=== PATIENT | male | born 1955 | race Caucasian/White ===

== ENCOUNTER 2016-12-14 08:25 | Emergency (ER) | payer SELFPAY ==
[~2016-12-14] VITALS: Ht 177.8 cm; Wt 60.0 kg
[~2016-12-14 08:25] MED LIST: ASPI81; MVI; PRIL20TA2; [UNRECOGNIZED DRUG - OTHER]
[2016-12-14 08:27] VITALS: BP 119/60; PULSE 118; RESP 20; TEMP 98.2; O2SAT 95
[2016-12-14 08:46] VITALS: BP 141/72; PULSE 104; O2SAT 100
[2016-12-14 09:00] VITALS: BP 129/70; PULSE 98; RESP 18; O2SAT 99
[2016-12-14] MEDS ORDERED: LISI-519 PO (09:27)
[2016-12-14] MEDS ORDERED: TAMS5CAP PO (09:27)
[2016-12-14] MEDS ORDERED: METO25TA3 PO (09:27)
--- NOTE | 2016-12-14 09:54 | PD ---
HPI . Urinary retention Chief Complaint: Complaint Time Seen by Provider: 09:34 Travel History International Travel<30 days: No Contact w/Intl Traveler<30days: No Traveled to known affect area: No History of Present Illness HPI This patient presents with urinary retention which started at 10:30 last night. He states that the symptoms are now severe. He states that he has been on Flomax for 4 days but that his symptoms are worse rather than better. He denies any associated nausea, vomiting or fever. PFSH Past Medical History Heart Rhythm Problems: Yes Diminished Hearing: No GERD: Yes Hypertension: Yes Past Surgical History Abdominal Surgery: Yes (RT HERNIA REPAIR X 1 AND LT HERNIA REPAIR X 3) Social History Alcohol Use: Yes (couple daily) Tobacco Use: Yes Substance Use: No Allergies-Medications (Allergen,Severity, Reaction): Coded Allergies: acetaminophen (Verified Allergy, Severe, Hallucinations, 12/14/16) oxycodone (Verified Allergy, Severe, Hallucinations, 12/14/16) Reported Meds & Prescriptions Reported Meds & Active Scripts Active Reported Metoprolol Tartrate 25 Mg Tab 25 Mg PO DAILY Lisinopril 5 Mg Tab 5 Mg PO DAILY Flomax (Tamsulosin HCl) 0.4 Mg Cap 0.4 Mg PO HS Review of Systems Except as stated in HPI: all other systems reviewed are Neg General / Constitutional: No: Fever, Chills Gastrointestinal: No: Nausea, Vomiting Genitourinary: Positive: Decreased Urinary Output, Hesitancy, Dribbling, Pelvic Pain Physical Exam Narrative GENERAL: Patient is lying on the stretcher in mild distress. SKIN: warm/dry. No rashes. HEAD: Normocephalic. Atraumatic. EYES: Pupils equal and round. No scleral icterus. No injection or drainage. ENT: No nasal bleeding or discharge. Mucous membranes pink and moist. NECK: Trachea midline. Full range of motion without pain.. CARDIOVASCULAR: Regular rate and rhythm. RESPIRATORY: No accessory muscle use. Clear to auscultation. Breath sounds equal bilaterally. GASTROINTESTINAL: Abdomen soft. Nontender. Bowel sounds present. Suprapubic distention to approximately 2 cm below the umbilicus. MUSCULOSKELETAL: No obvious deformities. NEUROLOGICAL: Awake and alert. No obvious cranial nerve deficits. Motor grossly within normal limits. Normal speech. PSYCHIATRIC: Appropriate mood and affect; insight and judgment normal. Data Data Last Documented VS Vital Signs Date Time Temp Pulse Resp B/P (MAP) Pulse Ox O2 Delivery O2 Flow Rate FiO2 12/14/16 08:46 104 141/72 (95) 100 Room Air 12/14/16 08:27 98.2 20 Orders Orders Urinary Catheter Insert/Apply (12/14/16 09:34) Urinalysis - C+S If Indicated (12/14/16 09:34) Urine Culture (12/14/16 09:54) Labs Laboratory Tests Test 12/14/16 09:54 Urine Color YELLOW Urine Turbidity CLEAR Urine pH 6.0 Urine Specific [place] 1.014 Urine Protein TRACE mg/dL Urine Glucose (UA) NEG mg/dL Urine Ketones TRACE mg/dL Urine Occult Blood SMALL Urine Nitrite NEG Urine Bilirubin NEG Urine Urobilinogen LESS THAN 2.0 MG/DL Urine Leukocyte Esterase NEG Urine RBC 4 /hpf Urine WBC 2 /hpf Urine Squamous Epithelial Cells <1 /hpf Urine Bacteria OCC /hpf Urine Hyaline Casts 29 /lpf Urine Mucus MANY /lpf Microscopic Urinalysis Comment CATH-CULTURE IND MDM Medical Decision Making Medical Screen Exam Complete: Yes Emergency Medical Condition: Yes Medical Record Reviewed: Yes (this patient states that he's been seen here in the recent past for same. His last visit in the computer is in 2006.) Differential Diagnosis Differential diagnosis of urinary retention includes but is not limited to prostatitis, BPH, prostate cancer, bladder outlet obstruction due to blood clot , acute UTI, neurogenic bladder Narrative Course This patient presents with acute urinary retention. A Granado will be placed and left. UA has been sent. He reports that he already has a referral to a urologist. He has not yet seen a urologist. He is already on Flomax. UA>>neg nitrite, neg LE, 2 WBC, occ bact. Doesn't really look infected. Will DC with a leg bag and follow-up with urology. Diagnosis Primary Impression: Acute urinary retention Patient Instructions: General Instructions, Urinary Retention in Men (DC) Additional Instructions: Follow-up with urology as planned Disposition: 01 DISCHARGE HOME Condition: Stable Kathy Mo MD Dec 14, 2016 09:54
[2016-12-14 10:00] VITALS: BP 138/77; PULSE 110; RESP 18; O2SAT 99
[2016-12-14 10:34] LABS: BACTERIA, URINE OCC /hpf; BLOOD, URINE SMALL (NEG); COMMENT (UR) CATH-CULTURE IND; CULTURE IF INDICATED CATH CULTURE IND; GLUCOSE,URINE NEG (NEG); HYALINE CAST, URINE 29 /lpf (RARE); KETONE, URINE TRACE mg/dL (NEG); MUCUS URINE MANY /lpf (OCC); NITRITE,URINE NEG (NEG); SQUAMOUS EPITHELIAL CELL URINE <1 /hpf (0-5); URINE COLOR YELLOW (YELLW/STRAW)
[2016-12-14 11:00] VITALS: BP 137/76
[2016-12-14] MEDS ORDERED: MACR100C2 PO (16:16)
== END 2016-12-14 12:20 | disposition left against medical advice (07) ==
LOC: NEPC 08:25
DX: R33.9 Retention of urine, unspecified (principal); I10 Essential (primary) hypertension; Z72.0 Tobacco use; Z86.79 Personal history of other diseases of the circulatory system; Z87.19 Personal history of other diseases of the digestive system; Z53.29 Procedure and treatment not carried out because of patient's decision for other reasons
CPT/HCPCS: 51702; 81001; 87086

== ENCOUNTER 2016-12-14 15:08 | Emergency (ER) | payer SELFPAY ==
[~2016-12-14] VITALS: Ht 177.8 cm; Wt 70.0 kg
[~2016-12-14 15:08] MED LIST changes: +LISI-519 PO; +METO25TA3 PO; +TAMS5CAP PO
[2016-12-14 15:09] VITALS: BP 130/71; PULSE 106; RESP 13; TEMP 98.7; O2SAT 100
--- NOTE | 2016-12-14 16:15 | PD ---
HPI Chief Complaint: Complaint Time Seen by Provider: 15:51 Travel History International Travel<30 days: No Contact w/Intl Traveler<30days: No Traveled to known affect area: No History of Present Illness HPI 61-year-old male came to the emergency room with history of urinary retention. She was in the emergency room earlier this morning for the same complain and had a Granado placed. His bladder was emptied and the plan was to send him home on Granado catheter and leg bag but patient demanded the Granado to be taken out since it was hurting him. Eventually he left AMA. He is back because he is in retention again. He supposed to see a urologist tomorrow but he cannot wait till tomorrow because of the pain from the retention. He says he will take the Granado and go home with the Granado this time. [facility] Past Medical History Narrative Medical List of his past medical, surgical, social and family history is reviewed from the nursing note. Heart Rhythm Problems: Yes Diminished Hearing: No GERD: Yes Hypertension: Yes Past Surgical History Abdominal Surgery: Yes (RT HERNIA REPAIR X 1 AND LT HERNIA REPAIR X 3) Social History Alcohol Use: Yes (couple daily) Tobacco Use: Yes Substance Use: No Allergies-Medications (Allergen,Severity, Reaction): Coded Allergies: acetaminophen (Verified Allergy, Severe, Hallucinations, 12/16/16) DENIES ANY ALLERGY oxycodone (Verified Allergy, Severe, Hallucinations, 12/16/16) DENIES ANY ALLERGY Comments List of his allergies reviewed from the nursing note. Reported Meds & Prescriptions Reported Meds & Active Scripts Active Macrobid (Nitrofurantoin Monoh/Nitrofur Macro) 100 Mg Cap 100 Mg PO BID 10 Days Reported Metoprolol Tartrate 25 Mg Tab 25 Mg PO DAILY Lisinopril 5 Mg Tab 5 Mg PO DAILY Flomax (Tamsulosin HCl) 0.4 Mg Cap 0.4 Mg PO HS Narrative Medication List of his home medications reviewed from the nursing note. Review of Systems Except as stated in HPI: all other systems reviewed are Neg Physical Exam Narrative GENERAL: Awake, alert, anxious, moderate distress SKIN: Focused skin assessment warm/dry. HEAD: Atraumatic. Normocephalic. EYES: Pupils equal and round. No scleral icterus. No injection or drainage. ENT: No nasal bleeding or discharge. Mucous membranes pink and moist. NECK: Trachea midline. No JVD. CARDIOVASCULAR: Regular rate and rhythm. No murmur appreciated. RESPIRATORY: No accessory muscle use. Clear to auscultation. Breath sounds equal bilaterally. GASTROINTESTINAL: Abdomen soft, non-tender, nondistended. Hepatic and splenic margins not palpable. MUSCULOSKELETAL: No obvious deformities. No clubbing. No cyanosis. No edema. NEUROLOGICAL: Awake and alert. No obvious cranial nerve deficits. Motor grossly within normal limits. Normal speech. PSYCHIATRIC: Appropriate mood and affect; insight and judgment normal. Data Data Last Documented VS Vital Signs Date Time Temp Pulse Resp B/P (MAP) Pulse Ox O2 Delivery O2 Flow Rate FiO2 12/14/16 17:26 12/14/16 15:09 98.7 106 13 100 Orders Orders Urinary Catheter Insert/Apply (12/14/16 15:57) [facility] Medical Decision Making Medical Screen Exam Complete: Yes Emergency Medical Condition: Yes Medical Record Reviewed: Yes Differential Diagnosis Urinary outlet obstruction, urinary retention Narrative Course 4:14 PM patient will get a Granado catheter and be discharged home on a leg bag. Patient showed UTI when he was here earlier today. I'll send him home with a prescription for Macrobid as well. Procedures EKG Prior to Arrival: No Diagnosis Primary Impression: Bladder retention of urine Additional Impression: UTI (urinary tract infection) Qualified Codes: N39.0 - Urinary tract infection, site not specified Referrals: Primary Care Physician Additional Instructions: Continue with the Granado catheter and care as per the nurse's teaching. Follow- up with the urologist tomorrow as per the appointment. Med/Other Pt SpecificInfo: Prescription(s) given, No Change to Meds Scripts Nitrofurantoin Monohydrate Macrocrystals (Macrobid) 100 Mg Cap 100 MG PO BID for Infection for 10 Days, #20 CAP 0 Refills Prov: Latonia Kidd MD 12/14/16 Disposition: 01 DISCHARGE HOME Condition: Stable Latonia Kidd MD Dec 14, 2016 16:15
[2016-12-14] MEDS ORDERED: MACR100C2 PO (16:16)
== END 2016-12-14 17:28 | disposition home or self-care (01) ==
LOC: NEPD 15:08
DX: R33.9 Retention of urine, unspecified (principal); N39.0 Urinary tract infection, site not specified; I10 Essential (primary) hypertension; Z72.0 Tobacco use; Z86.79 Personal history of other diseases of the circulatory system; Z87.19 Personal history of other diseases of the digestive system
CPT/HCPCS: 51702

== ENCOUNTER 2016-12-15 15:14 | Emergency (ER) | payer SELFPAY ==
[~2016-12-15] VITALS: Ht 177.8 cm; Wt 60.0 kg
[~2016-12-15 15:14] MED LIST changes: +MACR100C2 PO
[2016-12-15 15:16] VITALS: BP 120/74; PULSE 118; RESP 12; TEMP 98.7; O2SAT 96
--- NOTE | 2016-12-15 15:48 | PD ---
HPI Chief Complaint: Loan Underwriter Problem Time Seen by Provider: 15:24 Travel History International Travel<30 days: No Contact w/Intl Traveler<30days: No Traveled to known affect area: No History of Present Illness HPI 61-year-old male with PMH of chronic EtOH use presents to the ED for evaluation of lower abdominal pain secondary to his urinary catheter not draining today. The patient had a urinary catheter inserted yesterday secondary to urinary retention. He states that the catheter was draining fine overnight but has not drained any urine today. He endorses mild lower abdominal pain. He denies fever, chills, nausea, vomiting, back pain or weakness of the extremities. He has not been able to obtain follow-up with the urologist yet. He has not been taking the Macrobid that was prescribed at his last visit. PFSH Past Medical History Heart Rhythm Problems: Yes Diminished Hearing: No GERD: Yes Hypertension: Yes Past Surgical History Abdominal Surgery: Yes (RT HERNIA REPAIR X 1 AND LT HERNIA REPAIR X 3) Social History Alcohol Use: Yes (couple daily) Tobacco Use: Yes Substance Use: No Allergies-Medications (Allergen,Severity, Reaction): Coded Allergies: acetaminophen (Verified Allergy, Severe, Hallucinations, 12/15/16) DENIES ANY ALLERGY oxycodone (Verified Allergy, Severe, Hallucinations, 12/15/16) DENIES ANY ALLERGY Reported Meds & Prescriptions Reported Meds & Active Scripts Active Macrobid (Nitrofurantoin Monoh/Nitrofur Macro) 100 Mg Cap 100 Mg PO BID 10 Days Reported Metoprolol Tartrate 25 Mg Tab 25 Mg PO DAILY Lisinopril 5 Mg Tab 5 Mg PO DAILY Flomax (Tamsulosin HCl) 0.4 Mg Cap 0.4 Mg PO HS Review of Systems Except as stated in HPI: all other systems reviewed are Neg Physical Exam Narrative GENERAL: Well-nourished, well-developed thin white male in no acute distress. SKIN: Focused skin assessment warm/dry. HEAD: Normocephalic. EYES: No scleral icterus. No injection or drainage. NECK: Supple, trachea midline. No JVD or lymphadenopathy. CARDIOVASCULAR: Regular rate and rhythm without murmurs, gallops, or rubs. RESPIRATORY: Breath sounds clear and equal bilaterally. No accessory muscle use. GASTROINTESTINAL: Abdomen soft, non-tender, nondistended. Active bowel sounds. GENITOURINARY: Circumcised. Testes descended bilaterally without evidence of rotation. No lesions or erythema. No urethral discharge. There is a Granado catheter in place. No urine is visible in the collection bag. MUSCULOSKELETAL: No cyanosis, or edema. Moves states showed a spontaneously. Walks with normal gait. BACK: Nontender without obvious deformity. No CVA tenderness. Data Data Last Documented VS Vital Signs Date Time Temp Pulse Resp B/P (MAP) Pulse Ox O2 Delivery O2 Flow Rate FiO2 12/15/16 15:16 98.7 118 12 120/74 (89) 96 Orders Orders Urinary Catheter Insert/Apply (12/15/16 15:23) Urinalysis - C+S If Indicated (12/15/16 15:46) Nitrofurantoin Monohyd Macrocr (Macrobid (12/15/16 16:30) Urine Culture (12/15/16 15:55) Labs Laboratory Tests Test 12/15/16 15:55 Urine Color YELLOW Urine Turbidity CLEAR Urine pH 6.5 Urine Specific [place] 1.004 Urine Protein NEG mg/dL Urine Glucose (UA) NEG mg/dL Urine Ketones NEG mg/dL Urine Occult Blood MOD Urine Nitrite NEG Urine Bilirubin NEG Urine Urobilinogen LESS THAN 2.0 MG/DL Urine Leukocyte Esterase LARGE Urine RBC 1 /hpf Urine WBC 10 /hpf Urine Bacteria RARE /hpf Microscopic Urinalysis Comment CATH-CULTURE IND MDM Medical Decision Making Medical Screen Exam Complete: Yes Emergency Medical Condition: Yes 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 Patient was seen in the ED yesterday where he had a catheter placed secondary to urinary retention. He states that the catheter drained well overnight but is not draining today. No other complaints on presentation. Vital signs reviewed. The patient is well-appearing on physical exam. The Granado catheter is connected to an extension tube and there is no urine in the collection bag. The extension tube was removed and the leg bag was connected directly to the catheter tip. This resulted in a urinary void of approximately 350-400mLs. The patient reported complete resolution of his pain. Review of the record reveals that the patient was seen twice yesterday, left AMA the first time. Granado catheter was placed and he was prescribed Macrobid on the second visit. He has been noncompliant with the antibiotics. He was given a first dose here in the ED, instructed to take the medication as prescribed, follow up with Dr. Bailye as previously discussed. The patient is very anxious to leave, does not want to await the results of the UA. He is stable and discharged home. 1631: UA reveals large leukocyte esterase, 10 WBCs, rare bacteria. Culture pending. Diagnosis Primary Impression: Urinary retention Additional Impressions: Granado catheter problem Qualified Codes: T83.9XXA - Unspecified complication of genitourinary prosthetic device, implant and graft, initial encounter Noncompliance Referrals: Andrei Bailey MD Patient Instructions: General Instructions, Urinary Retention in Men (ED) Additional Instructions: Rest, hydrate. Begin taking Macrobid this afternoon as previously prescribed. Take all antibiotics as prescribed. Follow-up with Dr. Bailey as discussed. Return to the ED for any urgent or emergent medical condition. Disposition: 01 DISCHARGE HOME Condition: Stable Dora Felder Dec 15, 2016 15:48
[2016-12-15 16:19] LABS: BACTERIA, URINE RARE /hpf; BLOOD, URINE MOD (NEG); GLUCOSE,URINE NEG (NEG); KETONE, URINE NEG (NEG); NITRITE,URINE NEG (NEG); PH, URINE 6.5 (5.0-8.5); URINE COLOR YELLOW (YELLW/STRAW)
[2016-12-15 16:21] LABS: COMMENT (UR) CATH-CULTURE IND; CULTURE IF INDICATED CATH CULTURE IND
[2016-12-15] MEDS ORDERED: NITROFURANTOIN MONOHYD MACROCR 100 MG CAP PO ONE (16:30)
== END 2016-12-15 16:40 | disposition home or self-care (01) ==
LOC: NEPC 15:14
DX: R33.9 Retention of urine, unspecified (principal); T83.9XXA Unspecified complication of genitourinary prosthetic device, implant and graft, initial encounter; F10.20 Alcohol dependence, uncomplicated; K21.9 Gastro-esophageal reflux disease without esophagitis; I10 Essential (primary) hypertension; Z72.0 Tobacco use; Z88.5 Allergy status to narcotic agent; Z88.6 Allergy status to analgesic agent; Z79.899 Other long term (current) drug therapy
CPT/HCPCS: 81001; 87086; 99283

== ENCOUNTER 2016-12-16 13:05 | Emergency (ER) | payer SELFPAY ==
[~2016-12-16] VITALS: Ht 177.8 cm; Wt 59.0 kg
[2016-12-16 13:09] VITALS: BP 110/70; PULSE 102; RESP 20; TEMP 98; O2SAT 98
--- NOTE | 2016-12-16 13:21 | PD ---
Physical Exam Date Seen by Provider: Dec 16, 2016 Time Seen by Provider: 13:20 Narrative This 61-year-old white male presents to emergency department with complaints of a Granado obstruction. He had his Granado placed 2 days ago. Patient denies any nausea vomiting. He denies any significant pain. He states that. Working sometimes last evening. Vital signs reviewed. Awaiting bed placement. Data Data Last Documented VS Vital Signs Date Time Temp Pulse Resp B/P (MAP) Pulse Ox O2 Delivery O2 Flow Rate FiO2 12/16/16 13:09 98.0 102 20 110/70 (83) 98 Room Air [facility] Medical Record Reviewed: No Supervised Visit with SUNITHA: No Condition: Stable Isidro Olivares Dec 16, 2016 13:21
--- NOTE | 2016-12-16 13:33 | PD ---
HPI Chief Complaint: Admitting Counselor Problem Time Seen by Provider: 13:24 Travel History International Travel<30 days: No Contact w/Intl Traveler<30days: No Traveled to known affect area: No History of Present Illness HPI This is a 61-year-old male who presents to the emergency department for the fourth time in several days in the setting of acute urinary retention. I've seen him before with the same problem. He currently has a Granado catheter and he reports that he keeps getting obstructed and he wasn't flowing overnight. Here in the emergency department he says he has a little bit a urine in his bag and he denies any abdominal pain currently. He is pretty poor historian and he has a history of chronic alcoholism. He says he's been calling Dr. Dougherty's office and they called him yesterday and told him they would call him back today for an appointment. PFSH Past Medical History Heart Rhythm Problems: Yes Diminished Hearing: No GERD: Yes Hypertension: Yes Past Surgical History Abdominal Surgery: Yes (RT HERNIA REPAIR X 1 AND LT HERNIA REPAIR X 3) Social History Alcohol Use: Yes (couple daily) Tobacco Use: Yes Substance Use: No Allergies-Medications (Allergen,Severity, Reaction): Coded Allergies: acetaminophen (Verified Allergy, Severe, Hallucinations, 12/16/16) DENIES ANY ALLERGY oxycodone (Verified Allergy, Severe, Hallucinations, 12/16/16) DENIES ANY ALLERGY Reported Meds & Prescriptions Reported Meds & Active Scripts Active Macrobid (Nitrofurantoin Monoh/Nitrofur Macro) 100 Mg Cap 100 Mg PO BID 10 Days Reported Metoprolol Tartrate 25 Mg Tab 25 Mg PO DAILY Lisinopril 5 Mg Tab 5 Mg PO DAILY Flomax (Tamsulosin HCl) 0.4 Mg Cap 0.4 Mg PO HS Review of Systems Except as stated in HPI: all other systems reviewed are Neg Physical Exam Narrative GENERAL:Well appearing, no acute distress SKIN: Focused skin assessment warm and dry. HEAD: Atraumatic. Normocephalic. EYES: Pupils equal and round. No injection or drainage. ENT: Moist mucous membranes NECK: Trachea midline. CARDIOVASCULAR: Regular rate and rhythm. No murmur appreciated. RESPIRATORY: Clear to auscultation. Breath sounds equal bilaterally. GASTROINTESTINAL: Abdomen soft, non-tender, nondistended. : Granado catheter in place with clear urine in the bag. MUSCULOSKELETAL: No obvious deformities. NEUROLOGICAL: Awake and alert. No obvious cranial nerve deficits. Moving all extremities. PSYCHIATRIC: Appropriate mood and affect; insight and judgment normal. Data Data Last Documented VS Vital Signs Date Time Temp Pulse Resp B/P (MAP) Pulse Ox O2 Delivery O2 Flow Rate FiO2 12/16/16 13:09 98.0 102 20 110/70 (83) 98 Room Air MDM Medical Decision Making Medical Screen Exam Complete: Yes Emergency Medical Condition: Yes Interpretation(s) Afebrile, mild tachycardia, normotensive Differential Diagnosis Urinary retention, Granado catheter obstruction Narrative Course This is a 61-year-old male who presents to the emergency department reporting a blocked Granado catheter and urinary retention. On exam he has urine in his Granado catheter bag and says now is working okay. He was taught at the bedside how to flush his Granado catheter. I spoke to case management in order to confirm that the patient does have a mandatory referral in place for urology. Diagnosis Primary Impression: Obstructed Granado catheter Qualified Codes: T83.091A - Other mechanical complication of indwelling urethral catheter, initial encounter Patient Instructions: General Instructions Additional Instructions: If you develop severe or worsening abdominal pain, fever>100.4, persistent vomiting or inability to eat or drink return to the emergency department immediately. Follow up with urology as scheduled Med/Other Pt SpecificInfo: No Change to Meds Disposition: 01 DISCHARGE HOME Condition: Stable Brigette Lopez MD Dec 16, 2016 13:33
== END 2016-12-16 13:55 | disposition home or self-care (01) ==
LOC: NEPD 13:05
DX: T83.091A Other mechanical complication of indwelling urethral catheter, initial encounter (principal)
CPT/HCPCS: 99282

== ENCOUNTER 2016-12-16 20:21 | Emergency (ER) | payer SELFPAY ==
[~2016-12-16] VITALS: Ht 177.8 cm; Wt 59.0 kg
[2016-12-16 20:22] VITALS: BP 112/65; PULSE 98; RESP 15; TEMP 98.4; O2SAT 100
--- NOTE | 2016-12-16 20:55 | PD ---
Physical Exam Date Seen by Provider: Dec 16, 2016 Time Seen by Provider: 20:54 Narrative 61-year-old white male returns to the ER today for a second visit regarding Grandao catheter problems. He states that his Granado catheter is not draining properly. He denies any fever or chills. No nausea vomiting. Patient states his pain 8/10. Data Data Last Documented VS Vital Signs Date Time Temp Pulse Resp B/P (MAP) Pulse Ox O2 Delivery O2 Flow Rate FiO2 12/16/16 20:22 98.4 98 15 112/65 (81) 100 Room Air [facility] Medical Record Reviewed: No Supervised Visit with SUNITHA: Isidro Valentine Dec 16, 2016 20:55
== END 2016-12-16 23:26 | disposition left against medical advice (07) ==
LOC: NED 20:21
DX: T83.091A Other mechanical complication of indwelling urethral catheter, initial encounter (principal)
CPT/HCPCS: 99281

== ENCOUNTER 2016-12-22 16:07 | Emergency (ER) | payer SELFPAY ==
[~2016-12-22] VITALS: Ht 177.8 cm; Wt 60.0 kg
[~2016-12-22 16:07] MED LIST changes: -ASPI81; -MVI; -PRIL20TA2; -[UNRECOGNIZED DRUG - OTHER]
[2016-12-22 16:09] VITALS: BP 119/71; PULSE 127; RESP 17; TEMP 98.1; O2SAT 97
--- NOTE | 2016-12-22 16:14 | PD ---
Physical Exam Time Seen by Provider: 16:11 Narrative 61-year-old male presents to the emergency Department with complaint of not feeling well and shortness of breath last couple days. Had indwelling catheter placed 5 days ago and thinks he may have an infection. Denies abdominal pain, nausea, vomiting. Denies fevers. Reports decreased appetite. Denies chest pain. Patient seen in triage. Vital signs reviewed. Patient taken to medical bed. Data Data Last Documented VS Vital Signs Date Time Temp Pulse Resp B/P (MAP) Pulse Ox O2 Delivery O2 Flow Rate FiO2 12/22/16 16:09 98.1 127 17 119/71 (87) 97 MDM Supervised Visit with SUNITHA: Rosario Garcia Dec 22, 2016 16:14
[2016-12-22 16:25] VITALS: BP 147/77; PULSE 113; RESP 19; O2SAT 99
[2016-12-22] MEDS ORDERED: SODIUM CHLOR 0.9% 1000 ML INJ 1,000 ML IV ONE ×2 (16:40→18:30)
[2016-12-22] MEDS ORDERED: SODIUM CHLORIDE 0.9% FLUSH 10 ML FLUSH IVF PRN (16:45)
--- NOTE | 2016-12-22 16:47 | PD ---
HPI Chief Complaint: Complaint Time Seen by Provider: 04:40 Travel History International Travel<30 days: No Contact w/Intl Traveler<30days: No Traveled to known affect area: No History of Present Illness HPI 61-year-old white male complains of feeling and weak and mild increased shortness of breath for 2-3 days. He says that he has fallen 2 times during this time but then denies it. He says he has had 2 alcoholic drinks daily. He is not taking anticoagulants or aspirin. He says he had a urinary catheter placed 2 days ago for an enlarged prostate. His appetite has also been decreased for an unknown reason. He has been drinking multiple ensure protein drinks daily for nutrition replacement. He also has a history of high blood pressure. He denies any other medical complaints. Denies fever, chills, nausea , vomiting, chest pain, diarrhea, abdominal pain. PFSH Past Medical History Heart Rhythm Problems: Yes Cardiovascular Problems: Yes Diminished Hearing: No GERD: Yes Genitourinary: Yes (URINARY RETENTION WITH CANAS CATH ) Hypertension: Yes Immunizations Current: Yes Tetanus Vaccination: < 5 Years Influenza Vaccination: No ?: Not Past Surgical History Abdominal Surgery: Yes (RT HERNIA REPAIR X 1 AND LT HERNIA REPAIR X 3) Social History Alcohol Use: Yes (LAST DRINK AN HOUR AGO) Tobacco Use: Yes Substance Use: No Allergies-Medications (Allergen,Severity, Reaction): Coded Allergies: acetaminophen (Verified Allergy, Severe, Hallucinations, 12/16/16) DENIES ANY ALLERGY oxycodone (Verified Allergy, Severe, Hallucinations, 12/16/16) DENIES ANY ALLERGY Reported Meds & Prescriptions Reported Meds & Active Scripts Active Macrobid (Nitrofurantoin Monoh/Nitrofur Macro) 100 Mg Cap 100 Mg PO BID 10 Days Reported Metoprolol Tartrate 25 Mg Tab 25 Mg PO DAILY Lisinopril 5 Mg Tab 5 Mg PO DAILY Flomax (Tamsulosin HCl) 0.4 Mg Cap 0.4 Mg PO HS Review of Systems Except as stated in HPI: all other systems reviewed are Neg General / Constitutional: Positive: Other (poor appetite for 2-3 days) Genitourinary: Positive: Other (urinary catheter in place) Musculoskeletal: Positive: Other (multiple) Physical Exam Narrative GENERAL: 61-year-old thin white male SKIN: Focused skin assessment warm/dry. HEAD: Atraumatic. Normocephalic. EYES: Pupils equal and round. No scleral icterus. No injection or drainage. ENT: No nasal bleeding or discharge. Mucous membranes pink and moist. NECK: Trachea midline. No JVD. CARDIOVASCULAR: Regular rate and rhythm. No murmur appreciated. RESPIRATORY: No accessory muscle use. Clear to auscultation. Breath sounds equal bilaterally. GASTROINTESTINAL: Abdomen soft, non-tender, nondistended. Hepatic and splenic margins not palpable. MUSCULOSKELETAL: No obvious deformities. Left knee demonstrates small areas of ecchymosis NEUROLOGICAL: Awake and alert. No obvious cranial nerve deficits. Motor grossly within normal limits. Normal speech. PSYCHIATRIC: Appropriate mood and affect; insight and judgment normal. Frustrated at his situation Data Data Last Documented VS Vital Signs Date Time Temp Pulse Resp B/P (MAP) Pulse Ox O2 Delivery O2 Flow Rate FiO2 12/22/16 17:06 100 27 118/56 (76) 12/22/16 16:26 Room Air 12/22/16 16:25 99 12/22/16 16:09 98.1 Orders Orders Basic Metabolic Panel (Bmp) (12/22/16 16:40) Complete Blood Count With Diff (12/22/16 16:40) Ckmb (Isoenzyme) Profile (12/22/16 16:40) Troponin I (12/22/16 16:40) Urinalysis - C+S If Indicated (12/22/16 16:40) Chest, Single Ap (12/22/16 16:40) Ct Brain W/O Iv Contrast(Rout) (12/22/16 16:40) Ecg Monitoring (12/22/16 16:40) Iv Access Insert/Monitor (12/22/16 16:40) Oximetry (12/22/16 16:40) Sodium Chloride 0.9% Flush (Ns Flush) (12/22/16 16:45) Sodium Chlor 0.9% 1000 Ml Inj (Ns 1000 M (12/22/16 16:40) Electrocardiogram (12/22/16 ) Alcohol (Ethanol) (12/22/16 16:40) Orthostatic Vital Signs (12/22/16 16:40) Chest, Single Ap (12/22/16 ) Urine Culture (12/22/16 16:55) CKMB (12/22/16 16:50) CKMB% (12/22/16 16:50) Sodium Chlor 0.9% 1000 Ml Inj (Ns 1000 M (12/22/16 18:30) Lorazepam Inj (Ativan Inj) (12/22/16 18:30) Labs Laboratory Tests Test 12/22/16 16:50 12/22/16 16:55 White Blood Count 6.4 TH/MM3 Red Blood Count 3.38 MIL/MM3 Hemoglobin 11.6 GM/DL Hematocrit 34.1 % Mean Corpuscular Volume 100.9 FL Mean Corpuscular Hemoglobin 34.2 PG Mean Corpuscular Hemoglobin Concent 33.9 % Red Cell Distribution Width 17.3 % Platelet Count 198 TH/MM3 Mean Platelet Volume 7.6 FL Neutrophils (%) (Auto) 53.1 % Lymphocytes (%) (Auto) 27.7 % Monocytes (%) (Auto) 13.9 % Eosinophils (%) (Auto) 2.3 % Basophils (%) (Auto) 3.0 % Neutrophils # (Auto) 3.4 TH/MM3 Lymphocytes # (Auto) 1.8 TH/MM3 Monocytes # (Auto) 0.9 TH/MM3 Eosinophils # (Auto) 0.1 TH/MM3 Basophils # (Auto) 0.2 TH/MM3 CBC Comment DIFF FINAL Differential Comment Blood Urea Nitrogen 9 MG/DL Creatinine 0.59 MG/DL Random Glucose 87 MG/DL Calcium Level 8.7 MG/DL Sodium Level 141 MEQ/L Potassium Level 3.6 MEQ/L Chloride Level 103 MEQ/L Carbon Dioxide Level 31.3 MEQ/L Anion Gap 7 MEQ/L Estimat Glomerular Filtration Rate 139 ML/MIN Total Creatine Kinase 128 U/L Creatine Kinase MB 1.6 NG/ML Troponin I LESS THAN 0.02 NG/ML Ethyl Alcohol Level 290 MG/DL Urine Color YELLOW Urine Turbidity CLOUDY Urine pH 8.5 Urine Specific [place] 1.021 Urine Protein 30 mg/dL Urine Glucose (UA) NEG mg/dL Urine Ketones NEG mg/dL Urine Occult Blood SMALL Urine Nitrite POS Urine Bilirubin NEG Urine Urobilinogen 2.0 MG/DL Urine Leukocyte Esterase MOD Urine RBC 27 /hpf Urine WBC 21 /hpf Urine Bacteria MOD /hpf Urine Mucus MANY /lpf Microscopic Urinalysis Comment CULTURE INDICATED MDM Medical Decision Making Medical Screen Exam Complete: Yes Emergency Medical Condition: Yes Differential Diagnosis Generalized weakness vs urinary tract infection vs dehydration vs alcoholism Narrative Course 61-year-old white male complains of feeling and weak and mild increased shortness of breath for 2-3 days. He said he fell but then denies it. He is not taking anticoagulants or aspirin. He does drink alcohol daily about 2-3 drinks. He says he had a urinary catheter placed 2 days ago for an enlarged prostate. His appetite has also been decreased for an unknown reason drinks multiple ensure protein drinks daily for nutrition replacement. He also has a history of high blood pressure. He denies any other medical complaints. Denies fever, chills, nausea, vomiting, chest pain, diarrhea, abdominal pain. During the examination, he admits that he may be going through alcohol withdrawal because he was becoming more agitated and felt horrible. He was given ativan to reduce his symptoms and felt better. Labs appear stable. Imaging CXR repeated due to questionable abnormality. A possible mass was found upon second CXR and recommended outpatient Chest CT. Pt was notified of this. Reviewed Head CT and he was without acute abnormality. Diagnosis Primary Impression: Lung mass Additional Impressions: Falls frequently Alcoholism Referrals: Primary Care Physician Patient Instructions: Alcohol Dependence (ED), General Instructions Additional Instructions: Follow up with your primary care physician for further evaluation of the lung mass. Stand up slowly to reduce the incidence of falls. Disposition: 01 DISCHARGE HOME Condition: Stable Maryam Thomas Dec 22, 2016 16:47
[2016-12-22 17:05] VITALS: BP 119/68; RESP 19
[2016-12-22 17:06] VITALS: BP 118/56; RESP 27
--- NOTE | 2016-12-22 17:12 | RADRPT ---
EXAM DATE/TIME: 12/22/2016 16:53 [facility] COMPARISON: No previous studies available for comparison. INDICATIONS : Shortness of breath. MEDICAL HISTORY : None. SURGICAL HISTORY : None. ENCOUNTER: Initial ACUITY: 1 day PAIN SCORE: 0/10 LOCATION: Bilateral chest FINDINGS: The cardiomediastinal contours are within normal limits. The exam demonstrates a small line running a cross the left chest I believe this is artifactual as there are lung markings seen distal to this. Re peat examination in the expiratory phase ensuring there is nothing overlying the patient's chest woul d be warranted to exclude pneumothorax. The right lung is clear. The bony structures are intact. CONCLUSION: 1. There is a small line running across left lung apex I believe this is artifactual and does not rep resent a true pneumothorax. Repeat examination with removal of what is overlying the patient chest is warranted. Repeat exam should be performed in the expiratory phase. The lungs are otherwise clear. Dalton Lama MD on December 22, 2016 at 17:09 Board Certified Radiologist. This report was verified electronically.
--- NOTE | 2016-12-22 17:18 | RADRPT ---
EXAM DATE/TIME: 12/22/2016 17:04 [facility] COMPARISON: No previous studies available for comparison. INDICATIONS : Dizziness. RADIATION DOSE: 56.35 CTDIvol (mGy) MEDICAL HISTORY : Cardiovascular disease. Hypertension. SURGICAL HISTORY : None. ENCOUNTER: Initial ACUITY: 1 day PAIN SCALE: 0/10 LOCATION: cranial TECHNIQUE: Multiple contiguous axial images were obtained of the head. Using automated exposure control and adj ustment of the mA and/or kV according to patient size, radiation dose was kept as low as reasonably a chievable to obtain optimal diagnostic quality images. DICOM format image data is available electro nically for review and comparison. FINDINGS: CEREBRUM: The ventricles are normal for age. No evidence of midline shift, mass lesion, hemorrhage or acute in farction. No extra-axial fluid collections are seen. POSTERIOR FOSSA: The cerebellum and brainstem are intact. The 4th ventricle is midline. The cerebellopontine angle i s unremarkable. EXTRACRANIAL: The visualized portion of the orbits is intact. SKULL: The calvaria is intact. No evidence of skull fracture. CONCLUSION: Normal examination. Ray Winston MD on December 22, 2016 at 17:17 Board Certified Radiologist. This report was verified electronically.
[2016-12-22 17:28] LABS: AUTOMATED NEUTROPHIL # 3.4 TH/MM3 (1.8-7.7); BASOPHIL # 0.2 TH/MM3 (0-0.2); EOSINOPHIL # 0.1 TH/MM3 (0-0.4); EOSINOPHIL % 2.3 % (0.0-4.0); HEMATOCRIT 34.1 % (39.0-51.0); HEMO FLAGS DIFF FINAL; LYMPH % 27.7 % (9.0-44.0); LYMPHOCYTE # 1.8 TH/MM3 (1.0-4.8); MEAN CELL VOLUME 100.9 FL (80.0-100.0); MEAN CORPUSCULAR HEMOGLOBIN 34.2 PG (27.0-34.0); MEAN CORPUSCULAR HGB CONC 33.9 % (32.0-36.0); MONO % 13.9 % (0.0-8.0); NEUT % 53.1 % (16.0-70.0); PLATELET COUNT 198 TH/MM3 (150-450); RED BLOOD COUNT 3.38 MIL/MM3 (4.50-5.90); RED CELL DISTRIBUTION WIDTH 17.3 % (11.6-17.2); WHITE BLOOD COUNT 6.4 TH/MM3 (4.0-11.0)
[2016-12-22 17:34] LABS: BACTERIA, URINE MOD /hpf; BLOOD, URINE SMALL (NEG); COMMENT (UR) CULTURE INDICATED; CULTURE IF INDICATED CULTURE INDICATED; GLUCOSE,URINE NEG (NEG); KETONE, URINE NEG (NEG); MUCUS URINE MANY /lpf (OCC); NITRITE,URINE POS (NEG); PH, URINE 8.5 (5.0-8.5); URINE COLOR YELLOW (YELLW/STRAW)
[2016-12-22 17:39] LABS: ANION GAP 7 MEQ/L (5-15); BICARBONATE 31.3 MEQ/L (21.0-32.0); BLOOD UREA NITROGEN 9 MG/DL (7-18); CHLORIDE 103 MEQ/L (98-107); GLOMERULAR FILTRATION RATE 139 ML/MIN (>89); POTASSIUM 3.6 MEQ/L (3.5-5.1); SODIUM (NA) 141 MEQ/L (136-145)
[2016-12-22 17:43] LABS: ALCOHOL 290 MG/DL (0-5); CREATINE KINASE 128 U/L (39-308)
[2016-12-22 17:57] LABS: CKMB 1.6 NG/ML (0.5-3.6)
--- NOTE | 2016-12-22 18:09 | RADRPT ---
EXAM DATE/TIME: 12/22/2016 17:44 [facility] COMPARISON: CHEST SINGLE AP, December 22, 2016, 16:53. INDICATIONS : Shortness of breath, syncope. MEDICAL HISTORY : Hypertension. Smoker. SURGICAL HISTORY : None. ENCOUNTER: Subsequent ACUITY: 2 weeks PAIN SCORE: 0/10 LOCATION: Bilateral chest FINDINGS: There is questionable 2 cm mass laterally in the right midlung. Lungs otherwise appear clear. No pleu ral effusion. No pneumothorax. Suspected hyperexpansion. Heart size is within normal limits. CONCLUSION: Possible right mid lung mass and a noncontrast chest CT is recommended when clinically feasible. Hype rexpanded but otherwise clear lungs. Joel Carmona MD on December 22, 2016 at 18:07 Board Certified Radiologist. This report was verified electronically.
[2016-12-22] MEDS ORDERED: LORazepam 2 MG/ML VIAL IV PUSH ONE (18:30)
[2016-12-22 19:29] VITALS: BP 151/80; PULSE 105; RESP 18; O2SAT 97
--- NOTE | 2016-12-23 15:10 | EKG ---
Date Performed: 12/22/2016 Time Performed: 17:34:48 PTAGE: 61 years EKG: Sinus rhythm NORMAL ECG PREVIOUS TRACING : 11/27/1999 15.04 Compared to prior tracing no significant change DOCTOR: Margaret Son Interpretating Date/Time 12/23/2016 15:09:54
== END 2016-12-22 20:51 | disposition home or self-care (01) ==
LOC: NEPC 16:07
DX: R91.8 Other nonspecific abnormal finding of lung field (principal); Z91.81 History of falling; F10.20 Alcohol dependence, uncomplicated; R55 Syncope and collapse; I10 Essential (primary) hypertension; K21.9 Gastro-esophageal reflux disease without esophagitis
CPT/HCPCS: 70450; 71010; 80048; 80307; 81001; 82550; 82552; 84484; 85025; 86403; 87077; 87086; 87186; 93005; 96361; 96374; 99285; J2060; J7030

== ENCOUNTER 2017-01-08 21:23 | Emergency (ER) | payer SELFPAY ==
[~2017-01-08] VITALS: Ht 180.3 cm; Wt 60.0 kg
[2017-01-08 21:30] VITALS: BP 126/72; PULSE 123; RESP 18; TEMP 98.7; O2SAT 97
--- NOTE | 2017-01-08 22:02 | PD ---
HPI Chief Complaint: GI Complaint Time Seen by Provider: 21:57 Travel History International Travel<30 days: No Contact w/Intl Traveler<30days: No Traveled to known affect area: No History of Present Illness HPI 61-year-old white male presents to emergency Department with complaints of urinary retention. Patient has a history of bladder outlet obstruction. He has had multiple catheters in the past. He had his Canas catheter removed this past week. He states that he had a complication of urinary tract infection during his last insertion. He is not taking any medications currently. He states that he had voided a small amount earlier this morning but has not passed urine since approximately noon. He feels distended and very uncomfortable. He states that this is similar sensation is had with obstruction in the past. He denies any fever or chills. No nausea vomiting. No upper abdominal pain. PFSH Past Medical History Narrative Medical Arrhythmia, BPH Heart Rhythm Problems: Yes Cardiovascular Problems: Yes Diminished Hearing: No GERD: Yes Genitourinary: Yes (URINARY RETENTION WITH CANAS CATH ) Hypertension: Yes Immunizations Current: Yes Tetanus Vaccination: < 5 Years Past Surgical History Abdominal Surgery: Yes (RT HERNIA REPAIR X 1 AND LT HERNIA REPAIR X 3) Social History Alcohol Use: Yes (LAST DRINK AN HOUR AGO) Tobacco Use: Yes Substance Use: No Allergies-Medications (Allergen,Severity, Reaction): Coded Allergies: acetaminophen (Verified Allergy, Severe, Hallucinations, 12/16/16) DENIES ANY ALLERGY oxycodone (Verified Allergy, Severe, Hallucinations, 12/16/16) DENIES ANY ALLERGY Reported Meds & Prescriptions Reported Meds & Active Scripts Active Macrobid (Nitrofurantoin Monoh/Nitrofur Macro) 100 Mg Cap 100 Mg PO BID 10 Days Reported Metoprolol Tartrate 25 Mg Tab 25 Mg PO DAILY Lisinopril 5 Mg Tab 5 Mg PO DAILY Flomax (Tamsulosin HCl) 0.4 Mg Cap 0.4 Mg PO HS Review of Systems Except as stated in HPI: all other systems reviewed are Neg General / Constitutional: No: Fever, Chills HENT: No: Lightheadedness, Sore Throat Cardiovascular: No: Chest Pain or Discomfort, Palpitations Respiratory: No: Cough, Shortness of Breath Genitourinary: Positive: Decreased Urinary Output, No: Frequency, Dysuria, Discharge Musculoskeletal: No: Myalgias, Arthralgias Skin: Positive Rash, Positive Dryness, No Itching Physical Exam Narrative GENERAL: This is a well-nourished, well-developed patient, in no apparent distress. SKIN: No rashes, ecchymoses or lesions. Warm and dry. HEAD: Atraumatic. Normocephalic. EYES: PERRL, EOMI, no discharge or injection. No scleral icterus. EARS: Clear NOSE: Nasal turbinates appear normal. THROAT: Mucosa pink and moist. Airway patent. NECK: Trachea midline. supple, moves head freely. LUNGS: Clear to auscultation. CV: Regular in rhythm. ABDOMEN: Soft. Patient has suprapubic tenderness and fullness. No guarding or rebound. Normal active bowel sounds. EXT: No clubbing cyanosis or edema. GENITOURINARY: Circumcised. Testes descended bilaterally without evidence of rotation. No lesions or erythema. No urethral discharge. Data Data Last Documented VS Vital Signs Date Time Temp Pulse Resp B/P (MAP) Pulse Ox O2 Delivery O2 Flow Rate FiO2 01/08/17 21:30 98.7 123 18 126/72 (90) 97 Orders Orders Urinary Catheter Management DODIE.Q8H (01/08/17 21:56) Urinalysis - C+S If Indicated (01/08/17 21:57) Ed Discharge Order (01/08/17 23:29) Labs Laboratory Tests Test 01/08/17 22:30 Urine Color LIGHT-YELLOW Urine Turbidity CLEAR Urine pH 6.0 Urine Specific [place] 1.006 Urine Protein NEG mg/dL Urine Glucose (UA) NEG mg/dL Urine Ketones NEG mg/dL Urine Occult Blood NEG Urine Nitrite NEG Urine Bilirubin NEG Urine Urobilinogen LESS THAN 2.0 MG/DL Urine Leukocyte Esterase NEG Urine WBC LESS THAN 1 /hpf Microscopic Urinalysis Comment CULT NOT INDICATED MDM Medical Decision Making Medical Screen Exam Complete: Yes Emergency Medical Condition: Yes Medical Record Reviewed: Yes Interpretation(s) Laboratory Tests Test 01/08/17 22:30 Urine Color LIGHT-YELLOW Urine Turbidity CLEAR Urine pH 6.0 Urine Specific [place] 1.006 Urine Protein NEG mg/dL Urine Glucose (UA) NEG mg/dL Urine Ketones NEG mg/dL Urine Occult Blood NEG Urine Nitrite NEG Urine Bilirubin NEG Urine Urobilinogen LESS THAN 2.0 MG/DL Urine Leukocyte Esterase NEG Urine WBC LESS THAN 1 /hpf Microscopic Urinalysis Comment CULT NOT INDICATED Differential Diagnosis Differential diagnoses: UTI, pyelonephritis, BPH, urinary retention Narrative Course A Canas catheter has been placed. Patient has had little over 600 cc out. His Canas catheter is transferred into a leg bag. This is acute urinary retention. Diagnosis Primary Impression: Acute urinary retention Patient Instructions: General Instructions Additional Instructions: Rest. Increase fluids. Canas catheter. Follow-up with urologist on Wednesday. Return to the ER for emergencies. Med/Other Pt SpecificInfo: No Meds Exist/No RX given Disposition: 01 DISCHARGE HOME Condition: Stable Isidro Olivares Jan 08, 2017 22:02
[2017-01-08 22:56] LABS: BLOOD, URINE NEG (NEG); GLUCOSE,URINE NEG (NEG); KETONE, URINE NEG (NEG); NITRITE,URINE NEG (NEG); URINE COLOR LIGHT-YELLOW (YELLW/STRAW)
[2017-01-08 23:11] LABS: COMMENT (UR) CULT NOT INDICATED; CULTURE IF INDICATED CULT NOT INDICATED
== END 2017-01-09 00:35 | disposition home or self-care (01) ==
LOC: NEPD 21:23
DX: N40.1 Benign prostatic hyperplasia with lower urinary tract symptoms (principal); R33.8 Other retention of urine; I49.9 Cardiac arrhythmia, unspecified; K21.9 Gastro-esophageal reflux disease without esophagitis; I10 Essential (primary) hypertension; F17.200 Nicotine dependence, unspecified, uncomplicated; Z79.899 Other long term (current) drug therapy
CPT/HCPCS: 51702; 81001

== ENCOUNTER 2017-02-26 10:36 | Emergency (ER) | payer SELFPAY ==
[~2017-02-26] VITALS: Ht 172.7 cm; Wt 59.0 kg
[~2017-02-26 10:36] MED LIST changes: +AMLO5 PO
[2017-02-26 10:37] VITALS: BP 147/80; PULSE 124; RESP 20; TEMP 98.9; O2SAT 98
[2017-02-26 11:28] LABS: BACTERIA, URINE RARE /hpf; BLOOD, URINE LARGE (NEG); GLUCOSE,URINE NEG (NEG); KETONE, URINE NEG (NEG); NITRITE,URINE NEG (NEG); PH, URINE 5.5 (5.0-8.5); URINE COLOR LIGHT-YELLOW (YELLW/STRAW)
[2017-02-26 11:31] LABS: COMMENT (UR) CATH-CULTURE IND; CULTURE IF INDICATED CATH CULTURE IND
[2017-02-26] MEDS ORDERED: CIPR-9 PO (11:49)
--- NOTE | 2017-02-26 11:49 | PD ---
HPI Chief Complaint: Complaint Time Seen by Provider: 10:43 Travel History International Travel<30 days: No Contact w/Intl Traveler<30days: No Traveled to known affect area: No History of Present Illness HPI Patient is a 61 year old male who comes in complaining of leakage from his catheter bag. He says it started last night. He had the catheter placed in the ED 3 weeks ago due to urinary retention. He went to urology who told him to leave the catheter in. He says he has had burning from his penis for the past few days. He denies nausea or vomiting. He denies abdominal pain. He denies fever or chills. He is currently taking Flomax. PFSH Past Medical History Heart Rhythm Problems: Yes Cardiovascular Problems: Yes Diminished Hearing: No GERD: Yes Genitourinary: Yes (URINARY RETENTION WITH CANAS CATH ) Hypertension: Yes Immunizations Current: Yes Past Surgical History Abdominal Surgery: Yes (RT HERNIA REPAIR X 1 AND LT HERNIA REPAIR X 3) Social History Alcohol Use: Yes (LAST DRINK AN HOUR AGO) Tobacco Use: Yes Substance Use: No Allergies-Medications (Allergen,Severity, Reaction): Coded Allergies: acetaminophen (Verified Allergy, Severe, Hallucinations, 12/16/16) DENIES ANY ALLERGY oxycodone (Verified Allergy, Severe, Hallucinations, 12/16/16) DENIES ANY ALLERGY Reported Meds & Prescriptions Reported Meds & Active Scripts Active Reported Metoprolol Tartrate 25 Mg Tab 25 Mg PO DAILY Lisinopril 5 Mg Tab 5 Mg PO DAILY Flomax (Tamsulosin HCl) 0.4 Mg Cap 0.4 Mg PO HS Review of Systems General / Constitutional: No: Fever, Chills HENT: No: Headaches, Lightheadedness Cardiovascular: No: Chest Pain or Discomfort Respiratory: No: Shortness of Breath Gastrointestinal: No: Nausea, Vomiting, Abdominal Pain Genitourinary: Positive: Dysuria Musculoskeletal: No: Edema, Pain Skin: No Rash, No Change in Pigmentation Neurologic: No: Weakness, Dizziness Physical Exam Narrative GENERAL: Awake and alert, in no acute distress. SKIN: Focused skin assessment warm/dry. HEAD: Atraumatic. Normocephalic. EYES: Pupils equal and round. No scleral icterus. EOMI ENT: Mucous membranes pink and moist. CARDIOVASCULAR: Regular rate and rhythm. No murmur appreciated. RESPIRATORY: No accessory muscle use. Clear to auscultation. Breath sounds equal bilaterally. GASTROINTESTINAL: Abdomen soft, non-tender, nondistended. No CVA tenderness. MUSCULOSKELETAL: No obvious deformities. No clubbing. No cyanosis. No edema. NEUROLOGICAL: Awake and alert. No obvious cranial nerve deficits. Motor grossly within normal limits. Normal speech. Data Data Last Documented VS Vital Signs Date Time Temp Pulse Resp B/P (MAP) Pulse Ox O2 Delivery O2 Flow Rate FiO2 02/26/17 10:37 98.9 124 20 147/80 (102) 98 Room Air Orders Orders Urinalysis - C+S If Indicated (02/26/17 11:02) Urinary Catheter Management DODIE.Q8H (02/26/17 11:09) Urine Culture (02/26/17 11:13) Labs Laboratory Tests Test 02/26/17 11:13 Urine Color LIGHT-YELLOW Urine Turbidity HAZY Urine pH 5.5 Urine Specific [place] 1.005 Urine Protein 30 mg/dL Urine Glucose (UA) NEG mg/dL Urine Ketones NEG mg/dL Urine Occult Blood LARGE Urine Nitrite NEG Urine Bilirubin NEG Urine Urobilinogen LESS THAN 2.0 MG/DL Urine Leukocyte Esterase LARGE Urine RBC 2 /hpf Urine WBC 52 /hpf Urine WBC Clumps FEW Urine Amorphous Sediment FEW Urine Bacteria RARE /hpf Microscopic Urinalysis Comment CATH-CULTURE IND MDM Medical Decision Making Medical Screen Exam Complete: Yes Emergency Medical Condition: Yes Medical Record Reviewed: Yes Differential Diagnosis UTI versus Canas catheter malfunction versus encounter for Canas catheter change. Narrative Course Patient is a 61-year-old male who comes in because he says his leg bag is leaking any sign of having some burning with urination. Exam shows no CVA tenderness, no abdominal tenderness. Urine sent for urinalysis is positive for UTI. Canas catheter was changed. Given a prescription for Cipro. Advised follow-up with urology. Advised to return to the ED as needed for any worsening symptoms. Diagnosis Primary Impression: UTI (urinary tract infection) Qualified Codes: N30.00 - Acute cystitis without hematuria Patient Instructions: General Instructions, Urinary Tract Infection in Men (ED) Additional Instructions: Follow up with urology. Take all of your antibiotic. Return to the ED as needed for any worsening symptoms. Scripts Ciprofloxacin (Cipro) 500 Mg Tab 500 MG PO BID for Infection for 10 Days, #20 TAB 0 Refills Prov: Arianna Andrews MD 02/26/17 Disposition: 01 DISCHARGE HOME Condition: Stable Arianna Andrews MD Feb 26, 2017 11:49
== END 2017-02-26 12:13 | disposition home or self-care (01) ==
LOC: NEPD 10:36
DX: N39.0 Urinary tract infection, site not specified (principal); K21.9 Gastro-esophageal reflux disease without esophagitis; I10 Essential (primary) hypertension; Z72.0 Tobacco use; Z79.899 Other long term (current) drug therapy
CPT/HCPCS: 81001; 87086; 99285

== ENCOUNTER 2017-03-15 22:44 | Emergency (ER) | payer SELFPAY ==
[~2017-03-15] VITALS: Ht 180.3 cm; Wt 60.0 kg
[~2017-03-15 22:44] MED LIST changes: +CIPR-9 PO; -MACR100C2 PO
[2017-03-15 22:45] VITALS: BP 137/76; PULSE 118; RESP 16; TEMP 98.1; O2SAT 96
--- NOTE | 2017-03-16 01:00 | PD ---
HPI Chief Complaint: Draw Hand Problem Time Seen by Provider: 00:54 Travel History International Travel<30 days: No Contact w/Intl Traveler<30days: No Traveled to known affect area: No History of Present Illness HPI 61-year-old white male with indwelling Canas presents to emergency department with a leaking leg bag. He would like the leg bag replaced. He has no other complaints. PFSH Past Medical History Hx Anticoagulant Therapy: No Heart Rhythm Problems: Yes Cardiac Catheterization: No Cardiovascular Problems: Yes High Cholesterol: No Chemotherapy: No Congestive Heart Failure: No Cerebrovascular Accident: No Diabetes: No Diminished Hearing: No Gastrointestinal Disorders: Yes (CONSTIPATION) GERD: Yes Genitourinary: Yes (URINARY RETENTION WITH CANAS CATH ) Hypertension: Yes Musculoskeletal: No Neurologic: No Reproductive: No Respiratory: No Immunizations Current: Yes Past Surgical History Abdominal Surgery: Yes (RT HERNIA REPAIR X 1 AND LT HERNIA REPAIR X 3) Coronary Artery Bypass Graft: No Hysterectomy: No Other Surgery: Yes ("a bunch of hernia surgeries" ) Family History Family Myocardial Infarction: No (unknown) Social History Alcohol Use: Yes (LAST DRINK AN HOUR AGO) Tobacco Use: Yes Substance Use: No Allergies-Medications (Allergen,Severity, Reaction): Coded Allergies: acetaminophen (Verified Allergy, Severe, Hallucinations, 03/15/17) DENIES ANY ALLERGY oxycodone (Verified Allergy, Severe, Hallucinations, 03/15/17) DENIES ANY ALLERGY hydrocodone (Unverified Adverse Reaction, Intermediate, Hallucinations, ) pt stated happened last time he took med, 20 years ago. Reported Meds & Prescriptions Reported Meds & Active Scripts Active Flomax (Tamsulosin HCl) 0.4 Mg Cap 0.4 Mg PO HS Reported Metoprolol Tartrate 25 Mg Tab 50 Mg PO BID Metoprolol Tartrate 25 Mg Tab 25 Mg PO DAILY Lisinopril 5 Mg Tab 5 Mg PO DAILY Flomax (Tamsulosin HCl) 0.4 Mg Cap 0.4 Mg PO HS Norvasc (Amlodipine Besylate) 5 Mg Tab 5 Mg PO DAILY Review of Systems General / Constitutional: No: Fever Eyes: No: Visual changes HENT: No: Headaches Cardiovascular: No: Chest Pain or Discomfort Respiratory: No: Shortness of Breath Gastrointestinal: No: Abdominal Pain Genitourinary: No: Dysuria Musculoskeletal: No: Pain Skin: No Rash Neurologic: No: Weakness Psychiatric: No: Depression Endocrine: No: Polydipsia Hematologic/Lymphatic: No: Easy Bruising Physical Exam Narrative GENERAL: This is a well-nourished, well-developed patient, in no apparent distress. SKIN: No rashes, ecchymoses or lesions. Warm and dry. HEAD: Atraumatic. Normocephalic. EYES: PERRL, EOMI, no discharge or injection. No scleral icterus. EARS: Clear NOSE: Nasal turbinates appear normal. THROAT: Mucosa pink and moist. Airway patent. NECK: Trachea midline. supple, moves head freely. LUNGS: Clear to auscultation. CV: Regular in rhythm. ABDOMEN: Soft nontender. EXT: No clubbing cyanosis or edema. GENITOURINARY: Circumcised. Testes descended bilaterally without evidence of rotation. No lesions or erythema. No urethral discharge. Patient has indwelling Canas. Data Data Last Documented VS Vital Signs Date Time Temp Pulse Resp B/P (MAP) Pulse Ox O2 Delivery O2 Flow Rate FiO2 03/15/17 22:45 98.1 118 16 137/76 (96) 96 Orders Orders Bag, Leg 32oz Sterile Large Ea (03/16/17 00:56) Ed Discharge Order (03/16/17 00:56) MDM Medical Decision Making Medical Screen Exam Complete: Yes Emergency Medical Condition: Yes Medical Record Reviewed: Yes Differential Diagnosis Differential diagnoses: Overflow incontinence, Canas malfunction, Canas bag Narrative Course Patient's leg bag has a hole in it. The bag is replaced by the nursing staff. Diagnosis Primary Impression: Canas bag malfunction Patient Instructions: General Instructions Additional Instructions: Rest. Follow-up with your urologist. Disposition: 01 DISCHARGE HOME Condition: Stable Isidro Olivares Mar 16, 2017 00:59
== END 2017-03-16 01:20 | disposition home or self-care (01) ==
LOC: NEPD 22:44
DX: T83.091A Other mechanical complication of indwelling urethral catheter, initial encounter (principal); I10 Essential (primary) hypertension; Z72.0 Tobacco use
CPT/HCPCS: 99281

== ENCOUNTER 2017-03-21 10:04 | Emergency (ER) | payer SELFPAY ==
[~2017-03-21 10:04] MED LIST changes: -CIPR-9 PO
[2017-03-21 10:14] VITALS: BP 132/73; TEMP 98.2; O2SAT 97
[2017-03-21] MEDS ORDERED: SODIUM CHLORIDE 0.9% FLUSH 10 ML FLUSH IVF PRN (11:15)
--- NOTE | 2017-03-21 11:15 | PD ---
HPI Chief Complaint: Medical Clearance Time Seen by Provider: 11:02 Travel History International Travel<30 days: No Contact w/Intl Traveler<30days: No Traveled to known affect area: No History of Present Illness HPI 61-year-old male with PMH of chronic alcoholism presents to the ED via EMS for evaluation of "I feel like I'm going to ." He states that he was at the bar when he had a episode of chest pain with shortness of breath. Sudden onset, lasting "a minute or so", no radiation, no alleviating or exacerbating factors reported. On presentation patient states that symptoms are resolved and he has no medical problems. He endorses daily drinking, "a few rum and Cokes a day". He is a current smoker. PFSH Past Medical History Hx Anticoagulant Therapy: No Heart Rhythm Problems: Yes Cardiac Catheterization: No Cardiovascular Problems: Yes High Cholesterol: No Chemotherapy: No Congestive Heart Failure: No Cerebrovascular Accident: No Diabetes: No Diminished Hearing: No Gastrointestinal Disorders: Yes (CONSTIPATION) GERD: Yes Genitourinary: Yes (URINARY RETENTION WITH CANAS CATH ) Hypertension: Yes Musculoskeletal: No Neurologic: No Reproductive: No Respiratory: No Immunizations Current: Yes Tetanus Vaccination: < 5 Years Past Surgical History Abdominal Surgery: Yes (RT HERNIA REPAIR X 1 AND LT HERNIA REPAIR X 3) Coronary Artery Bypass Graft: No Hysterectomy: No Other Surgery: Yes ("a bunch of hernia surgeries" ) Social History Alcohol Use: Yes (LAST DRINK AN HOUR AGO) Tobacco Use: Yes Substance Use: No Allergies-Medications (Allergen,Severity, Reaction): Coded Allergies: acetaminophen (Verified Allergy, Severe, Hallucinations, 03/21/17) DENIES ANY ALLERGY oxycodone (Verified Allergy, Severe, Hallucinations, 03/21/17) DENIES ANY ALLERGY hydrocodone (Unverified Adverse Reaction, Intermediate, Hallucinations, ) pt stated happened last time he took med, 20 years ago. Reported Meds & Prescriptions Reported Meds & Active Scripts Active No Active Prescriptions or Reported Medications Review of Systems Except as stated in HPI: all other systems reviewed are Neg Physical Exam Narrative GENERAL: Well-nourished, well-developed white male in no acute distress. SKIN: Focused skin assessment warm/dry. HEAD: Normocephalic. EYES: No scleral icterus. No injection or drainage. NECK: Supple, trachea midline. No JVD or lymphadenopathy. CARDIOVASCULAR: Regular rate and rhythm without murmurs, gallops, or rubs. RESPIRATORY: Breath sounds clear and equal bilaterally. No accessory muscle use. GASTROINTESTINAL: Abdomen soft, non-tender, nondistended. Active bowel sounds. MUSCULOSKELETAL: No cyanosis, or edema. BACK: Nontender without obvious deformity. No CVA tenderness. Data Data Last Documented VS Vital Signs Date Time Temp Pulse Resp B/P (MAP) Pulse Ox O2 Delivery O2 Flow Rate FiO2 03/21/17 11:27 98 Room Air 03/21/17 10:14 98.2 94 20 Orders Orders Electrocardiogram (03/21/17 11:07) Basic Metabolic Panel (Bmp) (03/21/17 11:07) Ckmb (Isoenzyme) Profile (03/21/17 11:07) Complete Blood Count With Diff (03/21/17 11:07) Magnesium (Mg) (03/21/17 11:07) Prothrombin Time / Inr (Pt) (03/21/17 11:07) Act Partial Throm Time (Ptt) (03/21/17 11:07) Troponin I (03/21/17 11:07) Chest, Single Ap (03/21/17 11:07) Ecg Monitoring (03/21/17 11:07) Bilateral Bp Monitoring (03/21/17 11:07) Iv Access Insert/Monitor (03/21/17 11:07) Oximetry (03/21/17 11:07) Sodium Chloride 0.9% Flush (Ns Flush) (03/21/17 11:15) Ed Discharge Order (03/21/17 12:36) Labs Laboratory Tests Test 03/21/17 11:20 White Blood Count 7.0 TH/MM3 Red Blood Count 3.50 MIL/MM3 Hemoglobin 12.5 GM/DL Hematocrit 36.5 % Mean Corpuscular Volume 104.4 FL Mean Corpuscular Hemoglobin 35.8 PG Mean Corpuscular Hemoglobin Concent 34.3 % Red Cell Distribution Width 16.5 % Platelet Count 111 TH/MM3 Mean Platelet Volume 7.7 FL Neutrophils (%) (Auto) 73.9 % Lymphocytes (%) (Auto) 17.7 % Monocytes (%) (Auto) 6.2 % Eosinophils (%) (Auto) 0.4 % Basophils (%) (Auto) 1.8 % Neutrophils # (Auto) 5.2 TH/MM3 Lymphocytes # (Auto) 1.2 TH/MM3 Monocytes # (Auto) 0.4 TH/MM3 Eosinophils # (Auto) 0.0 TH/MM3 Basophils # (Auto) 0.1 TH/MM3 CBC Comment DIFF FINAL Differential Comment Prothrombin Time 10.0 SEC Prothromb Time International Ratio 1.0 RATIO Activated Partial Thromboplast Time 24.5 SEC Blood Urea Nitrogen 9 MG/DL Creatinine 0.92 MG/DL Random Glucose 94 MG/DL Calcium Level 8.0 MG/DL Magnesium Level 1.9 MG/DL Sodium Level 141 MEQ/L Potassium Level 3.7 MEQ/L Chloride Level 105 MEQ/L Carbon Dioxide Level 28.5 MEQ/L Anion Gap 8 MEQ/L Estimat Glomerular Filtration Rate 83 ML/MIN Total Creatine Kinase 94 U/L Troponin I LESS THAN 0.02 NG/ML MDM Medical Decision Making Medical Screen Exam Complete: Yes Emergency Medical Condition: Yes Differential Diagnosis chest pain versus GERD versus chronic alcoholism versus other Narrative Course 61-year-old male with PMH of chronic alcoholism presents to the ED via EMS for evaluation of "I feel like I'm going to ." He states that he was at the bar when he had a episode of chest pain with shortness of breath. Sudden onset, lasting "a minute or so", no radiation, no alleviating or exacerbating factors reported. On presentation patient states that symptoms are resolved and he has no medical problems. He endorses daily drinking, "a few rum and Cokes a day". Vitals reviewed and are within normal limits. Exam is reassuring. I reviewed the patient's record and he had a stress test for the last 3 months that was negative. EKG rate 90, sinus rhythm. Normal intervals. Normal axis. No acute ST changes. Reviewed by Dr. Mo. CXR No acute process Cardiac enzymes negative 1. No concerning abnormalities of CBC, CMP. The patient states that he is going to take a cab home and spend the day with his roommate. He is stable and discharged home. Diagnosis Primary Impression: Chest pain of unknown etiology Additional Impression: Chronic alcoholism Referrals: [facility] (Out patient) Additional Instructions: Seek outpatient treatment for chronic alcoholism. Return to ED for any urgent or emergent medical condition. Scripts No Active Prescriptions or Reported Meds Disposition: DISCHARGE HOME Condition: Stable Dora Felder Mar 21, 2017 11:15
[2017-03-21 11:26] VITALS: BP 110/68
[2017-03-21 11:27] VITALS: O2SAT 98
[2017-03-21 11:44] LABS: AUTOMATED NEUTROPHIL # 5.2 TH/MM3 (1.8-7.7); BASOPHIL # 0.1 TH/MM3 (0-0.2); BASOPHIL % 1.8 % (0.0-2.0); EOSINOPHIL % 0.4 % (0.0-4.0); HEMATOCRIT 36.5 % (39.0-51.0); HEMOGLOBIN 12.5 GM/DL (13.0-17.0); LYMPH % 17.7 % (9.0-44.0); LYMPHOCYTE # 1.2 TH/MM3 (1.0-4.8); MEAN CELL VOLUME 104.4 FL (80.0-100.0); MEAN CORPUSCULAR HEMOGLOBIN 35.8 PG (27.0-34.0); MEAN CORPUSCULAR HGB CONC 34.3 % (32.0-36.0); MEAN PLATELET VOLUME 7.7 FL (7.0-11.0); MONO % 6.2 % (0.0-8.0); MONOCYTE # 0.4 TH/MM3 (0-0.9); NEUT % 73.9 % (16.0-70.0); PLATELET COUNT 111 TH/MM3 (150-450); RED CELL DISTRIBUTION WIDTH 16.5 % (11.6-17.2)
--- NOTE | 2017-03-21 11:49 | RADRPT ---
EXAM DATE/TIME: 03/21/2017 11:24 [facility] COMPARISON: CT THORAX W CONTRAST, October 04, 2016, 19:45. CHEST SINGLE AP, January 15, 2017, 16:21. INDICATIONS : Chest pain MEDICAL HISTORY : None. SURGICAL HISTORY : None. ENCOUNTER: Initial ACUITY: 1 day PAIN SCORE: 4/10 LOCATION: Bilateral chest FINDINGS: Lungs are clear. Localized diaphragmatic eventration left base. The heart and pulmonary vascularity are normal. The portion of the bony skeleton visualized is unremarkable. CONCLUSION: Negative for acute process right.. Localized diaphragmatic eventration on the Left. Jose Angel Lama MD FACR on March 21, 2017 at 11:46 Board Certified Radiologist. This report was verified electronically.
[2017-03-21 11:59] LABS: BICARBONATE 28.5 MEQ/L (21.0-32.0); BLOOD UREA NITROGEN 9 MG/DL (7-18); CHLORIDE 105 MEQ/L (98-107); CREATININE 0.92 MG/DL (0.60-1.30); GLOMERULAR FILTRATION RATE 83 ML/MIN (>89); GLUCOSE,RANDOM 94 MG/DL (74-106); MAGNESIUM 1.9 MG/DL (1.5-2.5); SODIUM (NA) 141 MEQ/L (136-145)
[2017-03-21 12:03] LABS: TROPONIN I LESS THAN 0.02 NG/ML (0.02-0.05)
--- NOTE | 2017-03-21 12:14 | PD ---
Physical Exam Date Seen by Provider: Mar 21, 2017 Narrative Patient presents to us from a local bar stating that he just doesn't feel well. Data Data Last Documented VS Vital Signs Date Time Temp Pulse Resp B/P (MAP) Pulse Ox O2 Delivery O2 Flow Rate FiO2 03/21/17 11:27 98 Room Air 03/21/17 10:14 98.2 94 20 Orders Orders Electrocardiogram (03/21/17 11:07) Basic Metabolic Panel (Bmp) (03/21/17 11:07) Ckmb (Isoenzyme) Profile (03/21/17 11:07) Complete Blood Count With Diff (03/21/17 11:07) Magnesium (Mg) (03/21/17 11:07) Prothrombin Time / Inr (Pt) (03/21/17 11:07) Act Partial Throm Time (Ptt) (03/21/17 11:07) Troponin I (03/21/17 11:07) Chest, Single Ap (03/21/17 11:07) Ecg Monitoring (03/21/17 11:07) Bilateral Bp Monitoring (03/21/17 11:07) Iv Access Insert/Monitor (03/21/17 11:07) Oximetry (03/21/17 11:07) Sodium Chloride 0.9% Flush (Ns Flush) (03/21/17 11:15) Labs Laboratory Tests Test 03/21/17 11:20 White Blood Count 7.0 TH/MM3 Red Blood Count 3.50 MIL/MM3 Hemoglobin 12.5 GM/DL Hematocrit 36.5 % Mean Corpuscular Volume 104.4 FL Mean Corpuscular Hemoglobin 35.8 PG Mean Corpuscular Hemoglobin Concent 34.3 % Red Cell Distribution Width 16.5 % Platelet Count 111 TH/MM3 Mean Platelet Volume 7.7 FL Neutrophils (%) (Auto) 73.9 % Lymphocytes (%) (Auto) 17.7 % Monocytes (%) (Auto) 6.2 % Eosinophils (%) (Auto) 0.4 % Basophils (%) (Auto) 1.8 % Neutrophils # (Auto) 5.2 TH/MM3 Lymphocytes # (Auto) 1.2 TH/MM3 Monocytes # (Auto) 0.4 TH/MM3 Eosinophils # (Auto) 0.0 TH/MM3 Basophils # (Auto) 0.1 TH/MM3 CBC Comment DIFF FINAL Differential Comment Prothrombin Time 10.0 SEC Prothromb Time International Ratio 1.0 RATIO Activated Partial Thromboplast Time 24.5 SEC Blood Urea Nitrogen 9 MG/DL Creatinine 0.92 MG/DL Random Glucose 94 MG/DL Calcium Level 8.0 MG/DL Magnesium Level 1.9 MG/DL Sodium Level 141 MEQ/L Potassium Level 3.7 MEQ/L Chloride Level 105 MEQ/L Carbon Dioxide Level 28.5 MEQ/L Anion Gap 8 MEQ/L Estimat Glomerular Filtration Rate 83 ML/MIN Total Creatine Kinase 94 U/L Troponin I LESS THAN 0.02 NG/ML MDM Supervised Visit with SUNITHA: Yes Interpretation(s) EKG shows a sinus rhythm with a rate of 90. No ST segment elevation or depression. Narrative Course I, Dr. Mo, have reviewed the advance practice practitioner's documentation and am in agreement, met with the patient face to face, made the diagnosis, and the medical decision making was done by me. *My assessment and Findings: Disheveled gentleman who smells of alcohol and does not appear to be in any acute distress. Vital Signs Date Time Temp Pulse Resp B/P (MAP) Pulse Ox O2 Delivery O2 Flow Rate FiO2 03/21/17 11:27 98 Room Air 03/21/17 11:26 110/68 (82) 03/21/17 10:14 98.2 94 20 132/73 (92) 97 CBC & BMP Diagram 03/21/17 11:20 Calcium Level 8.0 L, Magnesium Level 1.9 trop < 0.02 Last Impressions Chest X-Ray 03/21/17 1107 Signed Impressions: Service Date/Time: Tuesday, March 21, 2017 11:24 - CONCLUSION: Negative for acute process right.. Localized diaphragmatic eventration on the Left. Jose Angel Lama MD FACR Please see Dora Felder PA-C's note for results of laboratory and radiographic evaluation, ED course, final diagnosis and disposition Scripts No Active Prescriptions or Reported Meds Kathy Mo MD Mar 21, 2017 12:14
--- NOTE | 2017-03-21 18:09 | EKG ---
Date Performed: 03/21/2017 Time Performed: 11:13:37 PTAGE: 61 years EKG: Sinus rhythm NORMAL ECG PREVIOUS TRACING : 12/22/2016 17.34 Compared to prior tracing no significant change DOCTOR: Margaret Son Interpretating Date/Time 03/21/2017 18:08:39
== END 2017-03-21 13:36 | disposition home or self-care (01) ==
LOC: NEPD 10:04
DX: R07.9 Chest pain, unspecified (principal); R06.02 Shortness of breath; F10.20 Alcohol dependence, uncomplicated; Z72.0 Tobacco use
CPT/HCPCS: 71010; 80048; 82550; 83735; 84484; 85025; 85610; 85730; 93005; 99285

== ENCOUNTER 2017-03-29 11:43 | Emergency (ER) | payer SELFPAY ==
[~2017-03-29] VITALS: Ht 177.8 cm; Wt 60.0 kg
[2017-03-29 11:49] VITALS: BP 136/78; PULSE 100; RESP 19; TEMP 98.1; O2SAT 96
[2017-03-29 11:56] VITALS: BP 136/78; PULSE 100; RESP 18; TEMP 98.1; O2SAT 96
[2017-03-29] MEDS ORDERED: AZIT250T3 PO (12:14)
--- NOTE | 2017-03-29 12:14 | PD ---
HPI Chief Complaint: Complaint Time Seen by Provider: 12:12 Travel History International Travel<30 days: No Contact w/Intl Traveler<30days: No Traveled to known affect area: No History of Present Illness HPI 61-year-old male arrives by EMS. He complains of leakage from his Canas catheter leg bag last night. He also reports a cough. He notes that the leg bag has stopped leaking since he woke up. He notes occasional productive sputum with the coughing. No fever. No chest pain or shortness of breath. He follows with advanced urology. Timing resolved. Severity moderate. PFSH Past Medical History Hx Anticoagulant Therapy: No Heart Rhythm Problems: Yes Cardiac Catheterization: No Cardiovascular Problems: Yes High Cholesterol: No Chemotherapy: No Congestive Heart Failure: No Cerebrovascular Accident: No Diabetes: No Diminished Hearing: No Gastrointestinal Disorders: Yes (CONSTIPATION) GERD: Yes Genitourinary: Yes (URINARY RETENTION WITH CANAS CATH ) Hypertension: Yes Musculoskeletal: No Neurologic: No Reproductive: No Respiratory: No Immunizations Current: Yes Influenza Vaccination: No Past Surgical History Abdominal Surgery: Yes (RT HERNIA REPAIR X 1 AND LT HERNIA REPAIR X 3) Coronary Artery Bypass Graft: No Hysterectomy: No Other Surgery: Yes ("a bunch of hernia surgeries" ) Social History Alcohol Use: Yes (DAILY) Tobacco Use: Yes Substance Use: No Allergies-Medications (Allergen,Severity, Reaction): Coded Allergies: acetaminophen (Verified Allergy, Severe, Hallucinations, 03/29/17) DENIES ANY ALLERGY oxycodone (Verified Allergy, Severe, Hallucinations, 03/29/17) DENIES ANY ALLERGY hydrocodone (Unverified Adverse Reaction, Intermediate, Hallucinations, 03/29/17) pt stated happened last time he took med, 20 years ago. Reported Meds & Prescriptions Reported Meds & Active Scripts Active Azithromycin 250 Mg Tab 250 Mg PO DIRECTED Take 2 tabs (500 mg) on day 1 then 1 tab daily x 4 days. Review of Systems Except as stated in HPI: all other systems reviewed are Neg General / Constitutional: No: Fever Cardiovascular: No: Chest Pain or Discomfort Respiratory: Positive: Cough, Shortness of Breath Physical Exam Narrative GENERAL: 61-year-old male well-nourished well-developed pleasant SKIN: Focused skin assessment warm/dry. Patient has eczematous lesions and chronic in nature. HEAD: Atraumatic. Normocephalic. EYES: Pupils equal and round. No scleral icterus. No injection or drainage. ENT: No nasal bleeding or discharge. Mucous membranes pink and moist. NECK: Trachea midline. No JVD. CARDIOVASCULAR: Regular rate and rhythm. No murmur appreciated. RESPIRATORY: Occasional wheezing. No tachypnea. Speaking full sentences GASTROINTESTINAL: Abdomen soft, non-tender, nondistended. Hepatic and splenic margins not palpable. GENITOURINARY: There is a Canas to leg bag with yellow urine collecting. No leakage. MUSCULOSKELETAL: No obvious deformities. No clubbing. No cyanosis. No edema. NEUROLOGICAL: Awake and alert. No obvious cranial nerve deficits. Motor grossly within normal limits. Normal speech. PSYCHIATRIC: Appropriate mood and affect; insight and judgment normal. Data Data Last Documented VS Vital Signs Date Time Temp Pulse Resp B/P (MAP) Pulse Ox O2 Delivery O2 Flow Rate FiO2 03/29/17 11:56 98.1 100 18 136/78 (97) 96 Room Air Vital signs reviewed Orders Orders Replace Canas (03/29/17 12:12) Ed Discharge Order (03/29/17 12:13) [facility] Medical Decision Making Medical Screen Exam Complete: Yes Emergency Medical Condition: Yes Medical Record Reviewed: Yes Differential Diagnosis Pneumonia, Canas failure, COPD Narrative Course Patient refuses replacement of Canas catheter. The Bactrim will be replaced. Given the productive cough history smoking and COPD habitus we'll provide a course of azithromycin. There is no acute respiratory compromise. Diagnosis Primary Impression: Cough Additional Impression: Canas catheter problem Qualified Codes: T83.9XXS - Unspecified complication of genitourinary prosthetic device, implant and graft, sequela Referrals: Primary Care Physician call for appointment Med/Other Pt SpecificInfo: Prescription(s) given Scripts Azithromycin (Azithromycin) 250 Mg Tab 250 MG PO DIRECTED for Infection, #6 TAB 0 Refills Take 2 tabs (500 mg) on day 1 then 1 tab daily x 4 days. Prov: Dalton Mcmahan MD 03/29/17 Disposition: 01 DISCHARGE HOME Condition: Stable Dalton Mcmahan MD Mar 29, 2017 12:14
[2017-03-29 13:00] VITALS: BP 116/64
== END 2017-03-29 13:10 | disposition home or self-care (01) ==
LOC: NEPD 11:43
DX: T83.031A Leakage of indwelling urethral catheter, initial encounter (principal); R05 Cough; R06.02 Shortness of breath; K21.9 Gastro-esophageal reflux disease without esophagitis; I10 Essential (primary) hypertension; Z72.0 Tobacco use; Z88.6 Allergy status to analgesic agent; Z88.5 Allergy status to narcotic agent
CPT/HCPCS: 99283

== ENCOUNTER 2017-04-01 14:08 | Emergency (ER) | payer SELFPAY ==
[~2017-04-01 14:08] MED LIST changes: -AMLO5 PO; +AZIT250T3 PO; -LISI-519 PO; -METO25TA3 PO; -TAMS5CAP PO
[2017-04-01 14:19] VITALS: BP 116/63; PULSE 95; RESP 18; TEMP 98.7; O2SAT 98
== END 2017-04-01 17:14 | disposition left against medical advice (07) ==
LOC: NETRI 14:08
DX: R53.1 Weakness (principal); Z53.21 Procedure and treatment not carried out due to patient leaving prior to being seen by health care provider
CPT/HCPCS: 99281

== ENCOUNTER 2017-04-06 16:20 | Inpatient (IN) | payer SELFPAY ==
[2017-04-06 16:24] VITALS: BP 137/78; PULSE 108; RESP 20; TEMP 99.2; O2SAT 95
--- NOTE | 2017-04-06 17:11 | RADRPT ---
EXAM DATE/TIME: 04/06/2017 16:53 [facility] COMPARISON: No previous studies available for comparison. INDICATIONS : Shortness of breath. MEDICAL HISTORY : Hypertension. Smoker. ETOH abuse. SURGICAL HISTORY : Umbilical hernia repair. ENCOUNTER: Initial ACUITY: 1 week PAIN SCORE: 0/10 LOCATION: Bilateral chest FINDINGS: PA and lateral views of the chest demonstrate the lungs to be symmetrically aerated without evidence of mass, infiltrate or effusion. The cardiomediastinal contours are unremarkable. Osseous structure s are intact. CONCLUSION: No acute disease. Ernie Scott MD on April 06, 2017 at 17:09 Board Certified Radiologist. This report was verified electronically.
[2017-04-06 17:38] LABS: BASOPHIL % 0.5 % (0.0-2.0); EOSINOPHIL % 0.6 % (0.0-4.0); HEMATOCRIT 33.7 % (39.0-51.0); HEMOGLOBIN 11.6 GM/DL (13.0-17.0); LYMPH % 15.4 % (9.0-44.0); MEAN CELL VOLUME 105.1 FL (80.0-100.0); MEAN CORPUSCULAR HGB CONC 34.3 % (32.0-36.0); MEAN PLATELET VOLUME 7.6 FL (7.0-11.0); MONOCYTE # 1.3 TH/MM3 (0-0.9); NEUT % 63.5 % (16.0-70.0); PLATELET COUNT 237 TH/MM3 (150-450); RED BLOOD COUNT 3.21 MIL/MM3 (4.50-5.90); RED CELL DISTRIBUTION WIDTH 16.9 % (11.6-17.2); WHITE BLOOD COUNT 6.3 TH/MM3 (4.0-11.0)
[2017-04-06 18:03] LABS: ALBUMIN 3.7 GM/DL (3.4-5.0); ALKALINE PHOSPHATASE 241 U/L (45-117); ALT (GPT) 180 U/L (12-78); AST (GOT) 162 U/L (15-37); BICARBONATE 24.1 MEQ/L (21.0-32.0); BLOOD UREA NITROGEN 15 MG/DL (7-18); CHLORIDE 95 MEQ/L (98-107); CREATININE 1.08 MG/DL (0.60-1.30); GLOMERULAR FILTRATION RATE 69 ML/MIN (>89); GLUCOSE,RANDOM 83 MG/DL (74-106); SODIUM (NA) 133 MEQ/L (136-145); TOTAL BILIRUBIN ADULT 0.8 MG/DL (0.2-1.0); TOTAL PROTEIN 7.5 GM/DL (6.4-8.2)
[2017-04-06 20:54] VITALS: BP 117/77; PULSE 102; TEMP 98.2; O2SAT 88
[2017-04-06] MEDS ORDERED: methylPREDNISolone SOD SUCC 125 MG/2 ML VIAL IV PUSH ONE (21:15)
[2017-04-06] MEDS ORDERED: POTASSIUM CHLORIDE 10 MEQ CONTROLLED RELEASE TAB PO ONE (21:15)
[2017-04-06] MEDS ORDERED: SODIUM CHLOR 0.9% 1000 ML INJ 1,000 ML IV ONE (21:15)
[2017-04-06] MEDS ORDERED: LORazepam 2 MG/ML VIAL IV PUSH ONE (21:15)
[2017-04-06] MEDS: RESP: ALBUTEROL 2.5 MG/IPRATROPIUM 0.5 MG NEB (SCH) INH (21:17)
[2017-04-06 21:23] VITALS: O2SAT 100
--- NOTE | 2017-04-06 22:39 | RADRPT ---
EXAM DATE/TIME: 04/06/2017 22:07 [facility] COMPARISON: CT BRAIN W/O CONTRAST, December 22, 2016, 17:04. INDICATIONS : Altered mental status. RADIATION DOSE: 52.13 CTDIvol (mGy) MEDICAL HISTORY : Hypertension. SURGICAL HISTORY : None. ENCOUNTER: Initial ACUITY: 1 day PAIN SCALE: 0/10 LOCATION: cranial TECHNIQUE: Multiple contiguous axial images were obtained of the head. Using automated exposure control and adj ustment of the mA and/or kV according to patient size, radiation dose was kept as low as reasonably a chievable to obtain optimal diagnostic quality images. DICOM format image data is available electro nically for review and comparison. FINDINGS: CEREBRUM: The ventricles are normal for age. No evidence of midline shift, mass lesion, hemorrhage or acute in farction. No extra-axial fluid collections are seen. POSTERIOR FOSSA: The cerebellum and brainstem are intact. The 4th ventricle is midline. The cerebellopontine angle i s unremarkable. EXTRACRANIAL: Trace fluid/debris seen in both maxillary air cells. SKULL: The calvaria is intact. No evidence of skull fracture. CONCLUSION: No acute intracranial abnormality. Mild sinus disease. Joel Carmona MD on April 06, 2017 at 22:35 Board Certified Radiologist. This report was verified electronically.
[2017-04-06 22:49] VITALS: BP 128/69; PULSE 107; RESP 22; O2SAT 98
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
[2017-04-06 23:00] VITALS: BP 125/63; PULSE 106; RESP 23; O2SAT 98
[2017-04-07] VITALS (10 sets, daily range): BP systolic 104–129; BP diastolic 55–77; PULSE 79–107; RESP 16–26; TEMP 97.3–98.9; O2SAT 96–100
[2017-04-07] MEDS ORDERED: LORazepam 2 MG/ML VIAL IV PUSH ONE
[2017-04-07] MEDS ORDERED: KETOROLAC TROMETHAMINE 30 MG/ML (IVP) VIAL IV PUSH ONE
[2017-04-07] MEDS ORDERED: AZITHROMYCIN 250 MG TAB PO ONE
[2017-04-07] MEDS ORDERED: LORazepam 2 MG/ML VIAL IV PUSH PRN ×5 (00:15→10:30)
[2017-04-07] MEDS ORDERED: SODIUM CHLORIDE 0.9% FLUSH 10 ML FLUSH IV FLUSH PRN ×2 (00:15→10:30)
[2017-04-07] MEDS ORDERED: chlordiazePOXIDE 25 MG CAP PO ONE (00:15)
[2017-04-07] MEDS ORDERED: THIAMINE HCL 100 MG TAB PO ONE (00:15)
[2017-04-07] MEDS ORDERED: RESP: ALBUTEROL 2.5 MG/IPRATROPIUM 0.5 MG NEB (PRN) NEB (00:15)
[2017-04-07] MEDS ORDERED: NALOXONE HCL 0.4 MG/ML AMP IV PUSH PRN (00:15)
[2017-04-07] MEDS: SODIUM CHLORIDE 0.9% FLUSH 10 ML FLUSH IV FLUSH SCH ×2 (08:50→20:35)
[2017-04-07] MEDS ORDERED: THIAMINE HCL 100 MG TAB PO SCH (09:00)
[2017-04-07] MEDS: chlordiazePOXIDE 25 MG CAP PO SCH ×3 (09:01→16:43)
[2017-04-07] MEDS: AZITHROMYCIN 250 MG TAB PO SCH (09:02)
[2017-04-07] MEDS ORDERED: FLUMAZENIL 0.5 MG/5 ML VIAL IV PUSH PRN (10:30)
[2017-04-07] MEDS ORDERED: LORazepam 1 MG TAB PO PRN (10:30)
[2017-04-07] MEDS ORDERED: LORazepam 2 MG TAB PO PRN (10:30)
--- NOTE | 2017-04-07 10:31 | HHI.HP ---
HPI Service [facility] Primary Care Physician Mylene Mcintosh MD Admission Diagnosis Alcohol withdrawal Diagnoses: Travel History International Travel<30 Days: No Contact w/Intl Traveler <30 Da: No Traveled to Known Affected Are: No History of Present Illness Mr. Bolden is a 61 year old male. He came in with cough and dyspnea. Etiology for the dyspnea appears to be tachycardia. Tachycardia appears to be related to alcohol withdrawal. He has not had a drink for 24 hours and is at baseline a heavy drinker. She is admitted here with delirium tremens. He received benzodiazepines prior to my discussion with him and has a difficult time staying awake or providing much history when seen. However, his tremors have improved on the benzodiazepine. No other complaints. No fevers. No evidence of pneumonia on imaging. No evidence of infection including fevers or leukocytosis. 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 Active Ordered Medications Administered Medications Medications (Trade) Dose Ordered Sig/Jerry Route PRN Reason Start Time Stop Time Status Last Admin Dose Admin Sodium Chloride (NS Flush) 2 ml BID IV FLUSH 04/07/17 09:00 04/07/17 08:50 Chlordiazepoxide (Librium) 25 mg TID PO 04/07/17 09:00 04/07/17 09:01 Thiamine HCl (Vitamin B1) 100 mg DAILY PO 04/07/17 09:00 04/07/17 09:01 Azithromycin (Zithromax) 250 mg DAILY PO 04/07/17 09:00 04/07/17 09:02 Family History Unable to obtain secondary to lethargy from intoxication Social History History of heavy alcohol use History of smoking, cannot quantify currently Physical Exam Vital Signs Vital Signs Date Time Temp Pulse Resp B/P (MAP) Pulse Ox O2 Delivery O2 Flow Rate FiO2 04/07/17 07:18 100 18 122/77 (92) 96 Nasal Cannula 1.50 04/07/17 05:00 86 20 110/64 (79) 100 Nasal Cannula 2.00 04/07/17 04:00 94 25 122/73 (89) 100 Nasal Cannula 2.00 04/07/17 03:00 96 24 122/55 (77) 100 Nasal Cannula 2.00 04/07/17 02:00 98 25 118/55 (76) 99 Nasal Cannula 2.00 04/07/17 01:03 107 22 119/57 (77) 99 Nasal Cannula 2.00 04/07/17 00:00 106 26 129/64 (85) 98 Nasal Cannula 2.00 04/06/17 23:00 106 23 125/63 (83) 98 Nasal Cannula 2.00 04/06/17 22:50 Nasal Cannula 2.00 04/06/17 22:49 107 22 128/69 (88) 98 Nasal Cannula 2.00 04/06/17 21:23 100 Nasal Cannula 2.00 04/06/17 20:54 98.2 102 117/77 (90) 88 04/06/17 16:24 99.2 108 20 137/78 (97) 95 Physical Exam GENERAL: NAD, A&Ox0, fine global tremor HEAD: Normocephalic. NECK: Supple, trachea midline. No lymphadenopathy. EYES: No scleral icterus. No injection or drainage. CARDIOVASCULAR: Tachycardia and regular rhythm without murmurs, gallops, or rubs. RESPIRATORY: Breath sounds equal bilaterally. No accessory muscle use. GASTROINTESTINAL: Abdomen soft, non-tender, nondistended. MUSCULOSKELETAL: No cyanosis, or edema. SKIN: Warm and dry. NEURO: No focal neurological deficitis. Laboratory Laboratory Tests Test 04/06/17 17:20 04/06/17 22:43 White Blood Count 6.3 Red Blood Count 3.21 Hemoglobin 11.6 Hematocrit 33.7 Mean Corpuscular Volume 105.1 Mean Corpuscular Hemoglobin 36.0 Mean Corpuscular Hemoglobin Concent 34.3 Red Cell Distribution Width 16.9 Platelet Count 237 Mean Platelet Volume 7.6 Neutrophils (%) (Auto) 63.5 Lymphocytes (%) (Auto) 15.4 Monocytes (%) (Auto) 20.0 Eosinophils (%) (Auto) 0.6 Basophils (%) (Auto) 0.5 Neutrophils # (Auto) 4.0 Lymphocytes # (Auto) 1.0 Monocytes # (Auto) 1.3 Eosinophils # (Auto) 0.0 Basophils # (Auto) 0.0 CBC Comment DIFF FINAL Differential Comment Blood Urea Nitrogen 15 Creatinine 1.08 Random Glucose 83 Total Protein 7.5 Albumin 3.7 Calcium Level 9.0 Alkaline Phosphatase 241 Aspartate Amino Transf (AST/SGOT) 162 Alanine Aminotransferase (ALT/SGPT) 180 Total Bilirubin 0.8 Sodium Level 133 Potassium Level 2.9 Chloride Level 95 Carbon Dioxide Level 24.1 Anion Gap 14 Estimat Glomerular Filtration Rate 69 Ammonia 23 Date/Time Source Procedure Growth Status 04/06/17 22:48 Nasal Washing Influenza Types A,B Antigen (JADE) - Final NEGATIVE FOR FLU A AND B ANTIGEN.... Complete Result Diagram: 04/06/17 1720 04/06/17 1720 Caprini VTE Risk Assessment Caprini VTE Risk Assessment: No/Low Risk (score <= 1) Caprini Risk Assessment Model Point Value = 1 Point Value = 2 Point Value = 3 Point Value = 5 Age 41-60 Minor surgery BMI > 25 kg/m2 Swollen legs Varicose veins or History of unexplained or recurrent spontaneous Oral contraceptives or hormone replacement Sepsis (< 1 month) Serious lung disease, including pneumonia (< 1 month) Abnormal pulmonary function Acute myocardial infarction Congestive heart failure (< 1 month) History of inflammatory bowel disease Medical patient at bed rest Age 61-74 Arthroscopic surgery Major open surgery (> 45 min) Laparoscopic surgery (> 45 min) Malignancy Confined to bed (> 72 hours) Immobilizing plaster cast Central venous access Age >= 75 History of VTE Family history of VTE Factor V Leiden Prothrombin [id number] Lupus anticoagulant Anticardiolipin antibodies Elevated serum homocysteine Heparin-induced thrombocytopenia Other congenital or acquired thrombophilia Stroke (< 1 month) Elective arthroplasty Hip, pelvis, or leg fracture Acute spinal cord injury (< 1 month) Prophylaxis Regimen Total Risk Factor Score Risk Level Prophylaxis Regimen 0-1 Low Early ambulation 2 Moderate Order ONE of the following: *Sequential Compression Device (SCD) *Heparin 5000 units SQ BID 3-4 Higher Order ONE of the following medications: *Heparin 5000 units SQ TID *Enoxaparin/Lovenox 40 mg SQ daily (WT < 150 kg, CrCl > 30 mL/min) *Enoxaparin/Lovenox 30 mg SQ daily (WT < 150 kg, CrCl > 10-29 mL/min) *Enoxaparin/Lovenox 30 mg SQ BID (WT < 150 kg, CrCl > 30 mL/min) AND/OR *Sequential Compression Device (SCD) 5 or more Highest Order ONE of the following medications: *Heparin 5000 units SQ TID (Preferred with Epidurals) *Enoxaparin/Lovenox 40 mg SQ daily (WT < 150 kg, CrCl > 30 mL/min) *Enoxaparin/Lovenox 30 mg SQ daily (WT < 150 kg, CrCl > 10-29 mL/min) *Enoxaparin/Lovenox 30 mg SQ BID (WT < 150 kg, CrCl > 30 mL/min) AND *Sequential Compression Device (SCD) Assessment and Plan Problem List: (1) Bronchitis ICD Code: J40 - Bronchitis, not specified as acute or chronic Status: Acute (2) Alcohol withdrawal ICD Code: F10.239 - Alcohol dependence with withdrawal, unspecified Status: Acute Assessment and Plan 61-year-old male admitted secondary to delirium tremens, with bronchitis Delirium tremens Alcohol withdrawal Alcohol abuse history [facility] protocol Monitor for improvement Thiamine Folic acid Multivitamin Hypokalemia Etiology is likely related to delirium tremens and alcohol abuse Last potassium level is 2.9 By mouth potassium replacement provided Monitor potassium levels Continue to monitor and replace as needed Bronchitis 5 days of azithromycin Follow clinically Nicotine dependence Once patient able to converse A, will discuss NicoDerm and cessation DVT prophylaxis Lovenox Physician Certification 2 Midnight Certification Type: Admission for Inpatient Services Order for Inpatient Services The services are ordered in accordance with Medicare regulations or non- Medicare payer requirements, as applicable. In the case of services not specified as inpatient-only, they are appropriately provided as inpatient services in accordance with the 2-midnight benchmark. Estimated LOS (days): 5 days is the estimated time the patient will need to remain in the hospital, assuming treatment plan goals are met and no additional complications. Post-Hospital Plan: Home Problem Qualifiers (1) Alcohol withdrawal: Qualified Codes: F10.239 - Alcohol dependence with withdrawal, unspecified Dalton Connell MD Apr 07, 2017 10:30
[2017-04-07] MEDS: LACTOBACILLUS ACIDOPHILUS TAB PO SCH ×2 (13:06→16:43)
[2017-04-07] MEDS: ENOXAPARIN SODIUM 40 MG/0.4 ML SYRINGE SQ SCH (13:07)
[2017-04-07 14:56] LABS: BICARBONATE 28.6 MEQ/L (21.0-32.0); CALCIUM 8.7 MG/DL (8.5-10.1); CREATININE 0.99 MG/DL (0.60-1.30)
[2017-04-07] MEDS ORDERED: SODIUM CHLORIDE 0.9% FLUSH 10 ML FLUSH IV FLUSH SCH (21:00)
[2017-04-07 21:39] LABS: INTERNATIONAL NORMALIZED RATIO 1.1 RATIO; PROTHROMBIN TIME - PATIENT 10.7 SEC (9.8-11.6)
[2017-04-08] VITALS: BP 128/70; PULSE 84; PULSE 85; RESP 18; TEMP 98.7; O2SAT 96
[2017-04-08 04:32] VITALS: BP 118/69; PULSE 94; RESP 16; TEMP 98.5; O2SAT 96
[2017-04-08 08:00] VITALS: BP 129/76; PULSE 84; PULSE 92; RESP 17; TEMP 98.8; O2SAT 93
[2017-04-08] MEDS ORDERED: POTASSIUM CHLORIDE 20 MEQ PWD PACKET PO ONE (09:15)
[2017-04-08 09:39] LABS: AUTOMATED NEUTROPHIL # 3.8 TH/MM3 (1.8-7.7); BASOPHIL % 0.6 % (0.0-2.0); EOSINOPHIL # 0.1 TH/MM3 (0-0.4); EOSINOPHIL % 1.3 % (0.0-4.0); HEMATOCRIT 31.2 % (39.0-51.0); HEMOGLOBIN 11.3 GM/DL (13.0-17.0); LYMPH % 17.8 % (9.0-44.0); LYMPHOCYTE # 1.1 TH/MM3 (1.0-4.8); MEAN CELL VOLUME 105.4 FL (80.0-100.0); MEAN CORPUSCULAR HEMOGLOBIN 38.1 PG (27.0-34.0); MEAN PLATELET VOLUME 7.6 FL (7.0-11.0); MONO % 20.8 % (0.0-8.0); MONOCYTE # 1.3 TH/MM3 (0-0.9); NEUT % 59.5 % (16.0-70.0); PLATELET COUNT 307 TH/MM3 (150-450); RED BLOOD COUNT 2.96 MIL/MM3 (4.50-5.90); RED CELL DISTRIBUTION WIDTH 16.8 % (11.6-17.2); WHITE BLOOD COUNT 6.4 TH/MM3 (4.0-11.0)
[2017-04-08 09:40] LABS: MEAN CORPUSCULAR HGB CONC 36.1 % (32.0-36.0)
[2017-04-08 09:44] LABS: INTERNATIONAL NORMALIZED RATIO 1.1 RATIO; PROTHROMBIN TIME - PATIENT 10.7 SEC (9.8-11.6)
[2017-04-08] MEDS: AZITHROMYCIN 250 MG TAB PO SCH (09:59)
[2017-04-08] MEDS: THIAMINE HCL 100 MG TAB PO SCH (09:59)
[2017-04-08] MEDS: LACTOBACILLUS ACIDOPHILUS TAB PO SCH ×3 (09:59→17:15)
[2017-04-08] MEDS: MULTIVITAMINS/MINERALS THERAPEUTIC TAB PO SCH (10:00)
[2017-04-08] MEDS: SODIUM CHLORIDE 0.9% FLUSH 10 ML FLUSH IV FLUSH SCH ×2 (10:00→22:45)
[2017-04-08] MEDS: chlordiazePOXIDE 25 MG CAP PO SCH (10:00)
[2017-04-08] MEDS: FOLIC ACID 1 MG TAB PO SCH (10:00)
[2017-04-08 10:12] LABS: ALBUMIN 2.9 GM/DL (3.4-5.0); ALKALINE PHOSPHATASE 183 U/L (45-117); ALT (GPT) 118 U/L (12-78); AST (GOT) 75 U/L (15-37); BICARBONATE 26.6 MEQ/L (21.0-32.0); BLOOD UREA NITROGEN 8 MG/DL (7-18); CALCIUM 8.6 MG/DL (8.5-10.1); CHLORIDE 101 MEQ/L (98-107); GLOMERULAR FILTRATION RATE 114 ML/MIN (>89); GLUCOSE,RANDOM 85 MG/DL (74-106); SODIUM (NA) 137 MEQ/L (136-145); TOTAL BILIRUBIN ADULT 0.6 MG/DL (0.2-1.0); TOTAL PROTEIN 6.2 GM/DL (6.4-8.2)
--- NOTE | 2017-04-08 11:14 | HHI.PR ---
Subjective Remarks Patient is still using the CIWA protocol. No new complaints today. His mentation has improved. Tremors are under control. Cough is slightly improved. Objective Vital Signs Date Time Temp Pulse Resp B/P (MAP) Pulse Ox O2 Delivery O2 Flow Rate FiO2 04/08/17 08:00 98.8 92 17 129/76 (93) 93 04/08/17 04:32 98.5 94 16 118/69 (85) 96 04/08/17 00:00 84 04/08/17 00:00 98.7 85 18 128/70 (89) 96 04/07/17 20:00 96 04/07/17 20:00 98.9 79 18 104/61 (75) 97 04/07/17 16:00 97.3 82 16 104/58 (73) 98 04/07/17 12:00 98.5 82 18 108/65 (79) 100 I/O 04/07/17 04/07/17 04/07/17 04/08/17 04/08/17 04/08/17 06:59 14:59 22:59 06:59 14:59 22:59 Intake Total 1000 ml 140 ml 480 ml 580 ml Output Total 175 ml 1400 ml Balance 1000 ml 140 ml 305 ml -820 ml Intake Oral 140 ml 480 ml 580 ml IV Total 1000 ml Output Urine Total 175 ml 1400 ml # Bowel Movements 1 Result Diagram: 04/08/17 0907 04/08/17 0907 Objective Remarks GENERAL: NAD, A&Ox3, fine global tremor HEAD: Normocephalic. NECK: Supple, trachea midline. No lymphadenopathy. EYES: No scleral icterus. No injection or drainage. CARDIOVASCULAR: Regular rate and rhythm without murmurs, gallops, or rubs. RESPIRATORY: Breath sounds equal bilaterally. No accessory muscle use. GASTROINTESTINAL: Abdomen soft, non-tender, nondistended. MUSCULOSKELETAL: No cyanosis, or edema. SKIN: Warm and dry. NEURO: No focal neurological deficitis. A/P Problem List: (1) Alcohol withdrawal ICD Code: F10.239 - Alcohol dependence with withdrawal, unspecified Status: Acute (2) Bronchitis ICD Code: J40 - Bronchitis, not specified as acute or chronic Status: Acute Assessment and Plan 61-year-old male admitted secondary to delirium tremens, with bronchitis. Librium will be added to transition from CIWA protocol to Librium through time. Delirium tremens Alcohol withdrawal Alcohol abuse history CIWA protocol continue Librium admitted Monitor for improvement Thiamine Folic acid Multivitamin Hypokalemia Etiology is likely related to delirium tremens and alcohol abuse Last potassium level is 3.3 By mouth potassium replacement provided Monitor potassium levels Continue to monitor and replace as needed Bronchitis Improving Plan to treat for 5 days with azithromycin Follow clinically Nicotine dependence Once patient able to converse A, will discuss NicoDerm and cessation DVT prophylaxis Lovenox Problem Qualifiers (1) Alcohol withdrawal: Qualified Codes: F10.239 - Alcohol dependence with withdrawal, unspecified Dalton Connell MD Apr 08, 2017 11:14
[2017-04-08 12:00] VITALS: BP 102/62; PULSE 85; PULSE 93; RESP 17; TEMP 98.8; O2SAT 94
[2017-04-08] MEDS: BACITRACIN TOP OINT 15 GM TUBE TOPICAL SCH ×2 (12:18→22:46)
[2017-04-08] MEDS: ENOXAPARIN SODIUM 40 MG/0.4 ML SYRINGE SQ SCH (12:19)
[2017-04-08 16:00] VITALS: BP 92/52; PULSE 92; RESP 17; TEMP 99; O2SAT 98
[2017-04-08 20:00] VITALS: BP 115/64; PULSE 85; PULSE 94; RESP 22; TEMP 97.9; O2SAT 97
[2017-04-08] MEDS: traMADol HCL 50 MG TAB PO PRN (22:52)
[2017-04-09] VITALS (7 sets, daily range): BP systolic 93–129; BP diastolic 54–77; PULSE 21–92; RESP 17–20; TEMP 96.6–98; O2SAT 94–98
[2017-04-09 05:35] LABS: AUTOMATED NEUTROPHIL # 2.2 TH/MM3 (1.8-7.7); BASOPHIL # 0.1 TH/MM3 (0-0.2); BASOPHIL % 1.5 % (0.0-2.0); EOSINOPHIL # 0.1 TH/MM3 (0-0.4); EOSINOPHIL % 1.9 % (0.0-4.0); HEMATOCRIT 32.6 % (39.0-51.0); LYMPH % 26.8 % (9.0-44.0); LYMPHOCYTE # 1.3 TH/MM3 (1.0-4.8); MEAN CELL VOLUME 105.4 FL (80.0-100.0); MEAN CORPUSCULAR HEMOGLOBIN 35.8 PG (27.0-34.0); MEAN CORPUSCULAR HGB CONC 33.9 % (32.0-36.0); MEAN PLATELET VOLUME 7.5 FL (7.0-11.0); MONO % 24.9 % (0.0-8.0); MONOCYTE # 1.2 TH/MM3 (0-0.9); NEUT % 44.9 % (16.0-70.0); PLATELET COUNT 298 TH/MM3 (150-450); RED BLOOD COUNT 3.09 MIL/MM3 (4.50-5.90); RED CELL DISTRIBUTION WIDTH 16.5 % (11.6-17.2); WHITE BLOOD COUNT 4.9 TH/MM3 (4.0-11.0)
[2017-04-09 06:04] LABS: ALBUMIN 2.9 GM/DL (3.4-5.0); ALT (GPT) 106 U/L (12-78); AST (GOT) 58 U/L (15-37); BICARBONATE 29.3 MEQ/L (21.0-32.0); BLOOD UREA NITROGEN 7 MG/DL (7-18); CALCIUM 8.6 MG/DL (8.5-10.1); CHLORIDE 101 MEQ/L (98-107); GLOMERULAR FILTRATION RATE 114 ML/MIN (>89); GLUCOSE,RANDOM 98 MG/DL (74-106); SODIUM (NA) 136 MEQ/L (136-145)
[2017-04-09 06:06] LABS: ALKALINE PHOSPHATASE 176 U/L (45-117); TOTAL BILIRUBIN ADULT 0.4 MG/DL (0.2-1.0); TOTAL PROTEIN 6.2 GM/DL (6.4-8.2)
[2017-04-09] MEDS: FOLIC ACID 1 MG TAB PO SCH (09:56)
[2017-04-09] MEDS: MULTIVITAMINS/MINERALS THERAPEUTIC TAB PO SCH (09:56)
[2017-04-09] MEDS: THIAMINE HCL 100 MG TAB PO SCH (09:56)
[2017-04-09] MEDS: SODIUM CHLORIDE 0.9% FLUSH 10 ML FLUSH IV FLUSH SCH ×2 (09:56→21:13)
[2017-04-09] MEDS: LACTOBACILLUS ACIDOPHILUS TAB PO SCH ×3 (09:56→17:15)
[2017-04-09] MEDS: AZITHROMYCIN 250 MG TAB PO SCH (09:56)
[2017-04-09] MEDS: BACITRACIN TOP OINT 15 GM TUBE TOPICAL SCH ×2 (09:57→21:12)
--- NOTE | 2017-04-09 11:50 | HHI.PR ---
Subjective Remarks Cough is improving. Improving withdrawal symptoms. Patient is transitioned off a [place] protocol with an as-needed basis Librium and we'll monitor to see how patient does on this treatment and consider discharge if he stable. Objective Vital Signs Date Time Temp Pulse Resp B/P (MAP) Pulse Ox O2 Delivery O2 Flow Rate FiO2 04/09/17 09:56 79 04/09/17 08:00 96.7 85 17 120/67 (84) 95 04/09/17 04:00 96.6 83 20 119/70 (86) 95 04/09/17 00:00 90 04/09/17 00:00 98.0 91 20 119/70 (86) 97 04/08/17 20:00 85 04/08/17 20:00 97.9 94 22 115/64 (81) 97 04/08/17 16:00 99.0 92 17 92/52 (65) 98 04/08/17 12:00 85 04/08/17 12:00 98.8 93 17 102/62 (75) 94 04/08/17 12:00 85 I/O 04/08/17 04/08/17 04/08/17 04/09/17 04/09/17 04/09/17 07:00 15:00 23:00 07:00 15:00 23:00 Intake Total 580 ml 2000 ml 360 ml Output Total 1400 ml 1325 ml 1225 ml Balance -820 ml 675 ml -865 ml Intake Oral 580 ml 2000 ml 360 ml Output Urine Total 1400 ml 1325 ml 1225 ml # Bowel Movements 0 0 Result Diagram: 04/09/17 0344 04/09/17 0344 Objective Remarks GENERAL: NAD, A&Ox3, fine global tremor HEAD: Normocephalic. NECK: Supple, trachea midline. No lymphadenopathy. EYES: No scleral icterus. No injection or drainage. CARDIOVASCULAR: Regular rate and rhythm without murmurs, gallops, or rubs. RESPIRATORY: Breath sounds equal bilaterally. No accessory muscle use. GASTROINTESTINAL: Abdomen soft, non-tender, nondistended. MUSCULOSKELETAL: No cyanosis, or edema. SKIN: Warm and dry. NEURO: No focal neurological deficitis. A/P Problem List: (1) Alcohol withdrawal ICD Code: F10.239 - Alcohol dependence with withdrawal, unspecified Status: Acute (2) Bronchitis ICD Code: J40 - Bronchitis, not specified as acute or chronic Status: Acute Assessment and Plan 61-year-old male admitted secondary to delirium tremens, with bronchitis. Librium transition to an as-needed basis. CIWA protocol with lorazepam discontinued. Consideration for discharge tomorrow if stable on these treatments. Delirium tremens Alcohol withdrawal Alcohol abuse history CIWA protocol discontinued Librium continued on an as needed basis for withdrawal Monitor for improvement Thiamine Folic acid Multivitamin Hypokalemia Resolved Monitor potassium levels Continue to monitor and replace as needed Bronchitis Improving Plan to treat for 5 days with azithromycin Follow clinically Nicotine dependence Once patient able to converse A, will discuss NicoDerm and cessation DVT prophylaxis Lovenox Problem Qualifiers (1) Alcohol withdrawal: Qualified Codes: F10.239 - Alcohol dependence with withdrawal, unspecified Dalton Connell MD Apr 09, 2017 11:50
[2017-04-09] MEDS: ENOXAPARIN SODIUM 40 MG/0.4 ML SYRINGE SQ SCH (12:19)
[2017-04-09] MEDS: traMADol HCL 50 MG TAB PO PRN (21:16)
[2017-04-10] VITALS (7 sets, daily range): BP systolic 98–138; BP diastolic 56–80; PULSE 85–95; RESP 20; TEMP 96.6–97.8; O2SAT 93–99
[2017-04-10] MEDS: LACTOBACILLUS ACIDOPHILUS TAB PO SCH ×3 (08:03→16:53)
[2017-04-10] MEDS: SODIUM CHLORIDE 0.9% FLUSH 10 ML FLUSH IV FLUSH SCH ×2 (08:03→21:15)
[2017-04-10] MEDS: AZITHROMYCIN 250 MG TAB PO SCH (08:03)
[2017-04-10] MEDS: MULTIVITAMINS/MINERALS THERAPEUTIC TAB PO SCH (08:03)
[2017-04-10] MEDS: THIAMINE HCL 100 MG TAB PO SCH (08:03)
[2017-04-10] MEDS: FOLIC ACID 1 MG TAB PO SCH (08:03)
[2017-04-10] MEDS: BACITRACIN TOP OINT 15 GM TUBE TOPICAL SCH ×2 (08:03→21:14)
[2017-04-10] MEDS: ENOXAPARIN SODIUM 40 MG/0.4 ML SYRINGE SQ SCH (12:20)
[2017-04-10] MEDS ORDERED: AZIT250T3 PO (13:43)
--- NOTE | 2017-04-10 13:47 | HHI.DS ---
Discharge Summary Admission Date Apr 07, 2017 at 00:16 Discharge Date: Apr 10, 2017 Admitting Diagnosis Alcohol withdrawal (1) Bronchitis ICD Code: J40 - Bronchitis, not specified as acute or chronic Diagnosis: Principal Status: Acute (2) Alcohol withdrawal ICD Code: F10.239 - Alcohol dependence with withdrawal, unspecified Diagnosis: Principal Status: Acute Procedures None Brief History - From Admission Mr. Bolden is a 61 year old male. He came in with cough and dyspnea. Etiology for the dyspnea appears to be tachycardia. Tachycardia appears to be related to alcohol withdrawal. He has not had a drink for 24 hours and is at baseline a heavy drinker. She is admitted here with delirium tremens. He received benzodiazepines prior to my discussion with him and has a difficult time staying awake or providing much history when seen. However, his tremors have improved on the benzodiazepine. No other complaints. No fevers. No evidence of pneumonia on imaging. No evidence of infection including fevers or leukocytosis. CBC/BMP: 04/09/17 0344 04/09/17 0344 Significant Findings Laboratory Tests Test 04/07/17 14:15 04/07/17 20:51 04/08/17 09:07 04/09/17 03:44 Sodium Level 135 MEQ/L (136-145) Potassium Level 3.3 MEQ/L (3.5-5.1) Estimat Glomerular Filtration Rate 77 ML/MIN (>89) Activated Partial Thromboplast Time 23.2 SEC (24.3-30.1) Red Blood Count 2.96 MIL/MM3 (4.50-5.90) 3.09 MIL/MM3 (4.50-5.90) Hemoglobin 11.3 GM/DL (13.0-17.0) 11.0 GM/DL (13.0-17.0) Hematocrit 31.2 % (39.0-51.0) 32.6 % (39.0-51.0) Mean Corpuscular Volume 105.4 FL (80.0-100.0) 105.4 FL (80.0-100.0) Mean Corpuscular Hemoglobin 38.1 PG (27.0-34.0) 35.8 PG (27.0-34.0) Mean Corpuscular Hemoglobin Concent 36.1 % (32.0-36.0) Monocytes (%) (Auto) 20.8 % (0.0-8.0) 24.9 % (0.0-8.0) Monocytes # (Auto) 1.3 TH/MM3 (0-0.9) 1.2 TH/MM3 (0-0.9) Total Protein 6.2 GM/DL (6.4-8.2) 6.2 GM/DL (6.4-8.2) Albumin 2.9 GM/DL (3.4-5.0) 2.9 GM/DL (3.4-5.0) Alkaline Phosphatase 183 U/L (45-117) 176 U/L (45-117) Aspartate Amino Transf (AST/SGOT) 75 U/L (15-37) 58 U/L (15-37) Alanine Aminotransferase (ALT/SGPT) 118 U/L (12-78) 106 U/L (12-78) Hospital Course Mr. Bolden is a 61-year-old male. He was admitted secondary to alcohol withdrawal with delirium tremens. Additionally, he had bronchitis. He is treated with azithromycin. He is weaning from alcohol. He is now stable off of benzodiazepines. Medically clear for discharge tomorrow morning at which time he will have access to housing. Plan for continuation of azithromycin for 3 more days. Pt Condition on Discharge: Stable Discharge Disposition: Discharge Home Discharge Time: <= 30 minutes Discharge Instructions DIET: Follow Instructions for: As Tolerated, No Restrictions Activities you can perform: Regular-No Restrictions Follow up Referrals: PCP Follow-up - 2 Weeks New Medications: Azithromycin (Azithromycin) 250 Mg Tab 250 MG PO DAILY for Infection, #3 TAB Dalton Connell MD Apr 10, 2017 13:47
[2017-04-10] MEDS: traMADol HCL 50 MG TAB PO PRN (21:15)
[2017-04-11 00:11] VITALS: BP 131/72; PULSE 88; RESP 20; TEMP 97.9; O2SAT 96
[2017-04-11 00:30] VITALS: PULSE 86
[2017-04-11 04:00] VITALS: BP 110/62; PULSE 88; RESP 20; TEMP 97.9; O2SAT 97
[2017-04-11] MEDS: LACTOBACILLUS ACIDOPHILUS TAB PO SCH ×2 (07:46→13:07)
[2017-04-11] MEDS: MULTIVITAMINS/MINERALS THERAPEUTIC TAB PO SCH (07:46)
[2017-04-11] MEDS: THIAMINE HCL 100 MG TAB PO SCH (07:46)
[2017-04-11] MEDS: AZITHROMYCIN 250 MG TAB PO SCH (07:46)
[2017-04-11] MEDS: FOLIC ACID 1 MG TAB PO SCH (07:47)
[2017-04-11] MEDS: SODIUM CHLORIDE 0.9% FLUSH 10 ML FLUSH IV FLUSH SCH (07:47)
[2017-04-11] MEDS: BACITRACIN TOP OINT 15 GM TUBE TOPICAL SCH (07:47)
[2017-04-11 08:00] VITALS: BP 99/57; PULSE 92; RESP 18; TEMP 98; O2SAT 93
[2017-04-11 12:00] VITALS: BP 108/61; PULSE 90; RESP 18; TEMP 97; O2SAT 96
[2017-04-11] MEDS: ENOXAPARIN SODIUM 40 MG/0.4 ML SYRINGE SQ SCH (13:08)
--- NOTE | 2017-04-11 14:20 | HHI.PR ---
Subjective Remarks Cough improved. Patient will need 3 more days of azithromycin. No new complaints. Arrangements have been made for outpatient housing and he will discharge today. Objective Vital Signs Date Time Temp Pulse Resp B/P (MAP) Pulse Ox O2 Delivery O2 Flow Rate FiO2 04/11/17 12:00 97.0 90 18 108/61 (77) 96 04/11/17 08:00 98.0 92 18 99/57 (71) 93 04/11/17 04:00 97.9 88 20 110/62 (78) 97 04/11/17 00:30 86 04/11/17 00:11 97.9 88 20 131/72 (91) 96 04/10/17 20:00 96.7 95 20 115/64 (81) 97 04/10/17 19:35 86 04/10/17 16:00 96.9 95 20 98/57 (71) 99 I/O 04/10/17 04/10/17 04/10/17 04/11/17 04/11/17 04/11/17 07:00 15:00 23:00 07:00 15:00 23:00 Intake Total 240 ml 120 ml 800 ml 600 ml Output Total 200 ml 1600 ml 250 ml Balance 40 ml 120 ml -800 ml 350 ml Intake Oral 240 ml 120 ml 800 ml 600 ml Output Urine Total 200 ml 1600 ml 250 ml # Bowel Movements 0 Result Diagram: 04/09/1734304/09/17343 Objective Remarks GENERAL: NAD, A&Ox3, fine global tremor HEAD: Normocephalic. NECK: Supple, trachea midline. No lymphadenopathy. EYES: No scleral icterus. No injection or drainage. CARDIOVASCULAR: Regular rate and rhythm without murmurs, gallops, or rubs. RESPIRATORY: Breath sounds equal bilaterally. No accessory muscle use. GASTROINTESTINAL: Abdomen soft, non-tender, nondistended. MUSCULOSKELETAL: No cyanosis, or edema. SKIN: Warm and dry. NEURO: No focal neurological deficitis. A/P Problem List: (1) Alcohol withdrawal ICD Code: F10.239 - Alcohol dependence with withdrawal, unspecified Status: Acute (2) Bronchitis ICD Code: J40 - Bronchitis, not specified as acute or chronic Status: Acute Assessment and Plan 61-year-old male admitted secondary to delirium tremens, with bronchitis. No further DVTs. Discharge home today. Delirium tremens Alcohol withdrawal Alcohol abuse history CIWA protocol discontinued Librium continued on an as needed basis for withdrawal Monitor for improvement Thiamine Folic acid Multivitamin Hypokalemia Resolved Monitor potassium levels Continue to monitor and replace as needed Bronchitis Improving Plan to treat for 5 days with azithromycin Follow clinically Nicotine dependence Once patient able to converse A, will discuss NicoDerm and cessation DVT prophylaxis Lovenox Problem Qualifiers (1) Alcohol withdrawal: Qualified Codes: F10.239 - Alcohol dependence with withdrawal, unspecified Dalton Connell MD Apr 11, 2017 14:20
== END 2017-04-11 16:08 | disposition home or self-care (01) | DRG 202 ==
LOC: NEPC 16:20 → NEDA 04-07 00:16 → NEDH 04-07 05:26 → N07B 04-07 15:23
PROVIDERS: ADMIT Hospitalist; ATTEND Hospitalist
DX: J20.9 Acute bronchitis, unspecified (principal); F10.231 Alcohol dependence with withdrawal delirium; K70.9 Alcoholic liver disease, unspecified; I10 Essential (primary) hypertension; R09.02 Hypoxemia; K21.9 Gastro-esophageal reflux disease without esophagitis; D64.9 Anemia, unspecified; R33.9 Retention of urine, unspecified; E87.6 Hypokalemia; F17.200 Nicotine dependence, unspecified, uncomplicated; Z88.5 Allergy status to narcotic agent; Z88.6 Allergy status to analgesic agent
CPT/HCPCS: 70450; 71046; 80048; 80053; 82140; 82948; 85025; 85610; 85730; 87804; 94640; 94664; 96361; 96374; 96375; J1650; J1885; J2060; J2930; J7030

== ENCOUNTER 2017-04-26 11:05 | Emergency (ER) | payer SELFPAY ==
[~2017-04-26] VITALS: Ht 180.3 cm; Wt 60.9 kg
[2017-04-26 11:08] VITALS: BP 153/86; PULSE 101; RESP 16; TEMP 98; O2SAT 99
[2017-04-26] MEDS ORDERED: TAMS5CAP PO (11:35)
--- NOTE | 2017-04-26 11:36 | PD ---
HPI Chief Complaint: Complaint Time Seen by Provider: 11:27 Travel History International Travel<30 days: No Contact w/Intl Traveler<30days: No Traveled to known affect area: No History of Present Illness HPI This is a 61-year-old male who has a history of BPH who presents to the emergency department requesting his Canas catheter out. He's had a Canas catheter since December. He says he just ran out of his Flomax. He intends to go to [place] where he wants to go to his brother's doctor to get some sort of intervention. [facility] been [facility] that he says is too expensive to continue going there. He says the catheter is making him burn, constant, moderate severity mostly in the tip of the penis. PFSH Past Medical History Hx Anticoagulant Therapy: No Heart Rhythm Problems: Yes Cardiac Catheterization: No Cardiovascular Problems: Yes High Cholesterol: No Chemotherapy: No Congestive Heart Failure: No Cerebrovascular Accident: No Diabetes: No Diminished Hearing: No Gastrointestinal Disorders: Yes (CONSTIPATION) GERD: Yes Genitourinary: Yes (URINARY RETENTION WITH CANAS CATH ) Hypertension: Yes Musculoskeletal: No Neurologic: No Reproductive: No Respiratory: No Immunizations Current: Yes Tetanus Vaccination: < 5 Years Influenza Vaccination: No Past Surgical History Abdominal Surgery: Yes (RT HERNIA REPAIR X 1 AND LT HERNIA REPAIR X 3) Coronary Artery Bypass Graft: No Hysterectomy: No Other Surgery: Yes ("a bunch of hernia surgeries" ) Social History Alcohol Use: No (22 days since last drink) Tobacco Use: No (22 days since last cigarette) Substance Use: No Allergies-Medications (Allergen,Severity, Reaction): Coded Allergies: acetaminophen (Verified Allergy, Severe, Hallucinations, 04/26/17) DENIES ANY ALLERGY oxycodone (Verified Allergy, Severe, Hallucinations, 04/26/17) DENIES ANY ALLERGY hydrocodone (Unverified Adverse Reaction, Intermediate, Hallucinations, ) pt stated happened last time he took med, 20 years ago. Reported Meds & Prescriptions Reported Meds & Active Scripts Active Azithromycin 250 Mg Tab 250 Mg PO DAILY Review of Systems General / Constitutional: No: Fever, Chills Gastrointestinal: No: Nausea, Vomiting Physical Exam Narrative GENERAL: Well-appearing, no acute distress, nontoxic SKIN: Warm and dry. HEAD: Atraumatic. Normocephalic. ENT: No nasal bleeding or discharge. Moist mucous membranes MUSCULOSKELETAL: No obvious deformities. NEUROLOGICAL: Awake and alert. No obvious cranial nerve deficits. Motor grossly within normal limits. Normal speech. PSYCHIATRIC: Appropriate mood and affect; insight and judgment normal. Data Data Last Documented VS Vital Signs Date Time Temp Pulse Resp B/P (MAP) Pulse Ox O2 Delivery O2 Flow Rate FiO2 04/26/17 11:25 18 04/26/17 11:08 98.0 101 153/86 (108) 99 Room Air MDM Medical Decision Making Medical Screen Exam Complete: Yes Emergency Medical Condition: Yes Differential Diagnosis Canas catheter malfunction, urinary retention, BPH Narrative Course This is a 61-year-old male who comes in requesting removal of his Canas catheter. He appears well. I think it's reasonable for him to do a voiding trial. Canas catheter was removed and the patient was started on Flomax. He was asked to return to the emergency department if he develops retention again. He expressed understanding. Diagnosis Primary Impression: Encounter for Canas catheter removal Patient Instructions: General Instructions Additional Instructions: If you develop severe or worsening abdominal pain, fever>100.4, persistent vomiting or inability to eat or drink return to the emergency department immediately. Follow-up with a urologist as soon as possible. Med/Other Pt SpecificInfo: Prescription(s) given Scripts Tamsulosin (Flomax) 0.4 Mg Cap 0.4 MG PO HS for Manage Prostate Problems, #30 CAP 0 Refills Prov: Brigette Lopez MD 04/26/17 Disposition: 01 DISCHARGE HOME Condition: Stable Brigette Lopez MD Apr 26, 2017 11:36
== END 2017-04-26 12:02 | disposition home or self-care (01) ==
LOC: NEPD 11:05
DX: Z46.6 Encounter for fitting and adjustment of urinary device (principal); N40.0 Benign prostatic hyperplasia without lower urinary tract symptoms; K21.9 Gastro-esophageal reflux disease without esophagitis; I10 Essential (primary) hypertension
CPT/HCPCS: 99283